=== PATIENT | male | born 1955 | race African-American/Black ===

== ENCOUNTER 2018-02-02 17:08 | Inpatient (IN) ==
[2018-02-02] MEDS ORDERED: Sod Chloride 0.9% Inj 1,000 ML IV.SIG ONE ×2 (18:53→22:06)
--- NOTE | 2018-02-02 19:54 | ED ---
HPI General Chief Complaint: Abdominal Pain Stated Complaint: Ams/vomiting Time Seen by Provider: 02/02/18 18:44 Source: family Mode of arrival: ambulatory Limitations: altered mental status History of Present Illness HPI narrative: 63-year-old male with PMH of HTN, schizophrenia presents to the ED with his family member for evaluation of 3 day history of altered mental status. Patient's brother at bedside states that patient has not spoken in 3 days. He also states that the patient has been vomiting for the last 2 days. He states that he noticed blood in the patient's stool today. On presentation the patient is alert, however, he does not answer questions appropriately or respond appropriately to commands. Patient's brother states that he has been administering the patient's medications. The brother at bedside states that the patient recently moved into his house after the [facility] where he was living closed. Primary care is through the [place]. MD complaint: altered mental status Onset (ago): day(s) (3) Timing confirmed by: family member Severity: moderate Consistency of symptoms: constant Context: unknown (schizophrenia) Related Data Home Medications Medication Instructions Recorded Confirmed acetaminophen [Tylenol Extra 500 mg PO Q4-6H PRN 02/02/18 02/02/18 Strength] amlodipine 5 mg PO DAILY 02/02/18 02/02/18 citalopram 20 mg PO DAILY 02/02/18 02/02/18 cyanocobalamin (vitamin B-12) 500 mcg PO DAILY 02/02/18 02/02/18 [Vitamin B-12] fluphenazine HCl 10 mg PO BID 02/02/18 02/02/18 hydrochlorothiazide 12.5 mg PO DAILY 02/02/18 02/02/18 lorazepam 1 mg PO TID 02/02/18 02/02/18 multivitamin with minerals 1 tab PO TID 02/02/18 02/02/18 omeprazole 20 mg PO DAILY 02/02/18 02/02/18 potassium chloride 20 meq PO BID 02/02/18 02/02/18 trazodone 200 mg PO HS 02/02/18 02/02/18 trihexyphenidyl 4 mg PO BID 02/02/18 02/02/18 Allergies Allergy/AdvReac Type Severity Reaction Status Date / Time cimetidine Allergy Severe Vomiting Unverified 02/02/18 18:44 penicillin G Allergy Severe Vomiting Unverified 02/02/18 18:44 h2 inhibitor Allergy Unknown Vomiting Uncoded 02/02/18 18:44 PCN,XPREXIA,STERAZONE Allergy Unknown Vomiting Uncoded 02/02/18 18:44 Review of Systems ROS Unobtainable ROS Unobtainable: unobtainable due to mental condition [facility] Medical History Medical History Schizophrenia, paranoid (Acute) Social History Social History Substance History: Active Abuse Second Hand Smoke Exposure: Yes Smoking Status: Current every day smoker Tobacco Type: Cigarettes How Often Do You Have a Drink Containing Alcohol: Never Recent Travel in [facility] within the Last 8 Weeks: No Recent Out of Country Travel within the Last 8 Weeks: No Substance Abuse Detail Marijuana: Substance Use Status: Active Route Used Substance Abuse: Inhalation Immunization History Tetanus Immunization: <5 Years Hx Influenza Vaccine This Season: Yes Exam Narrative Exam Narrative: GENERAL: Thin, well-developed -Algerian male sitting up in the stretcher in no acute distress. SKIN: Focused skin assessment warm/dry. HEAD: Atraumatic. Normocephalic. EYES: Pupils equal and round. No scleral icterus. No drainage. Eyes injected bilaterally. ENT: No nasal bleeding or discharge. Mucous membranes pink and moist. NECK: Trachea midline. No JVD. CARDIOVASCULAR: Regular rate and rhythm. No murmur appreciated. RESPIRATORY: No accessory muscle use. Clear to auscultation. Breath sounds equal bilaterally. GASTROINTESTINAL: Abdomen soft, non-tender, nondistended. Hepatic and splenic margins not palpable. No palpable masses. I am unable to elicit any response to deep palpation. RECTAL: Stool is dark, bloody. No masses. MUSCULOSKELETAL: No obvious deformities. No clubbing. No cyanosis. No edema. NEUROLOGICAL: Awake and alert. No obvious cranial nerve deficits. Motor grossly within normal limits. Normal speech. PSYCHIATRIC: Appropriate mood and affect; insight and judgment normal. Course Initial Documented Vital Signs Temperature 98.5 F 02/02/18 17:21 Pulse Rate 110 H 02/02/18 17:21 Respiratory Rate 12 02/02/18 17:21 Blood Pressure 132/94 H 02/02/18 17:21 Pulse Oximetry 97 02/02/18 17:21 Last Documented Vital Signs Temperature 98.5 F 02/02/18 17:21 Pulse Rate 88 02/02/18 23:35 Respiratory Rate 18 02/02/18 23:35 Blood Pressure 188/97 H 02/02/18 23:35 Pulse Oximetry 98 02/02/18 23:35 Procedures Hemaprompt Gastric Content Procedural Steps Taken: specimen placed in appropriate test area and controls appropriately positive and negative Hemaprompt Gastric Result: positive Additional Comments: frankly bloody stool Medical Decision Making MDM Narrative Medical decision making narrative: 63-year-old male with PMH of HTN, schizophrenia presents to the ED with his family member for evaluation of 3 day history of altered mental status. Patient's brother at bedside states that patient has not spoken in 3 days. He also states that the patient has been vomiting for the last 2 days. He states that he noticed blood in the patient's stool today. On presentation the patient is alert, however, he does not answer questions appropriately or respond appropriately to commands. Vitals reviewed. Physical exam reveals a thin -Algerian male in no acute distress. I am unable to elicit any pain in the abdominal exam. Guaiac positive on rectal exam with janine hematochezia noted. IV was established. Patient was administered 1 L normal saline, 4 mg Zofran IV. Psychiatric screen ordered. EKG rate 84, sinus rhythm, MS interval 137, QRS 86, QTc 420 ms. Left axis deviation, no acute ST changes. Reviewed by . CXR: Hyperinflation without acute cardiopulmonary process. Troponin: CBC: No leukocytosis or anemia CMP: Sodium 135, chloride 97, BUN 22, creatinine 1.13. COAGS: Unremarkable Lipase 90. UA: No indication for culture Tox screen: Alcohol: CT abdomen pelvis: Mild to moderate distention of the colon nonobstructive. Could represent hypodynamic ileus. Mild fluid distention of the gastric lumen. Otherwise no acute findings per radiology read. Medical Screen Exam Complete: Yes Emergency Medical Condition: Yes Differential Diagnosis Differential Diagnosis: schizophrenia versus GI bleed versus bowel obstruction versus pancreatitis versus cholecystitis versus metabolic derangement versus alcohol intoxication versus substance abuse versus other Lab Data Result diagrams: 02/02/18 21:55 02/02/18 19:04 Lab Results 02/02/18 02/02/18 02/02/18 Range/Units 19:04 21:55 21:55 WBC 9.4 (4.0-11.0) th/mm3 RBC 4.64 (4.50-5.90) mil/mm3 Hgb 14.7 (13.0-17.0) gm/dL Hct 43.8 (39.0-51.0) % MCV 94.5 (80.0-100.0) fL MCH 31.8 (27.0-34.0) pg MCHC 33.7 (32.0-36.0) % RDW 13.5 (11.6-17.2) % Plt Count 233 (150-450) th/mm3 MPV 6.6 L (7.0-11.0) fL Neut % (Auto) 77.9 H (16.0-70.0) % Lymph % (Auto) 14.4 (9.0-44.0) % Leon % (Auto) 7.3 (0.0-8.0) % Eos % (Auto) 0.1 (0.0-4.0) % Baso % (Auto) 0.3 (0.0-2.0) % Neut # (Auto) 7.3 (1.8-7.7) th/mm3 Lymph # (Auto) 1.3 (1.0-4.8) th/mm3 Leon # (Auto) 0.7 (0.0-0.9) th/mm3 Eos # (Auto) 0.0 (0.0-0.4) th/mm3 Baso # (Auto) 0.0 (0.0-0.2) th/mm3 WBC Differential . Differential Comment Auto diff final PT (9.8-11.6) sec INR Ratio APTT (24.3-30.1) sec Sodium 135 L (136-145) meq/L Potassium 4.3 (3.5-5.1) meq/L Chloride 97 L (98-107) meq/L Carbon Dioxide 26.8 (21.0-32.0) meq/L Anion Gap 11 (5-15) meq/L BUN 22 H (7-18) mg/dL Creatinine 1.13 (0.60-1.30) mg/dL Estimated GFR 79 L (>89) mL/min Random Glucose 152 H (74-106) mg/dL Calcium 11.3 H (8.5-10.1) mg/dL Total Bilirubin 0.6 (0.2-1.0) mg/dL AST 32 (15-37) U/L ALT 25 (12-78) U/L Alkaline Phosphatase 88 (45-117) U/L Troponin I 0.04 (0.02-0.05) ng/mL Total Protein 9.7 H (6.4-8.2) g/dL Albumin 4.7 (3.4-5.0) g/dL Lipase 90 (73-393) U/L Urine Color (Yellw/Straw) Urine Clarity (Clear) Urine pH (5.0-8.5) Ur Specific [place] (1.002-1.035) Urine Protein (Neg-Trace) mg/dL Urine Glucose (UA) (Negative) mg/dL Urine Ketones (Negative) mg/dL Urine Occult Blood (Negative) Urine Nitrate (Negative) Urine Bilirubin (Negative) Urine Urobilinogen (Less than 2) mg/dL Ur Leukocyte Esterase (Negative) Urine RBC (0-3) /hpf Urine WBC (0-5) /hpf Urine Mucus (Occasional) /lpf Micro UA Comment Urine Culture Comments Urine Opiates Screen (Neg) Ur Barbiturates Screen (Neg) Ur Amphetamines Screen (Neg) U Benzodiazepines Scrn (Neg) Urine Cocaine Screen (Neg) U Cannabinoids Screen (Neg) Serum Alcohol Less than 3 (0-5) mg/dL 02/02/18 02/02/18 02/02/18 Range/Units 21:55 21:55 21:55 WBC (4.0-11.0) th/mm3 RBC (4.50-5.90) mil/mm3 Hgb (13.0-17.0) gm/dL Hct (39.0-51.0) % MCV (80.0-100.0) fL MCH (27.0-34.0) pg MCHC (32.0-36.0) % RDW (11.6-17.2) % Plt Count (150-450) th/mm3 MPV (7.0-11.0) fL Neut % (Auto) (16.0-70.0) % Lymph % (Auto) (9.0-44.0) % Leon % (Auto) (0.0-8.0) % Eos % (Auto) (0.0-4.0) % Baso % (Auto) (0.0-2.0) % Neut # (Auto) (1.8-7.7) th/mm3 Lymph # (Auto) (1.0-4.8) th/mm3 Leon # (Auto) (0.0-0.9) th/mm3 Eos # (Auto) (0.0-0.4) th/mm3 Baso # (Auto) (0.0-0.2) th/mm3 WBC Differential Differential Comment PT 12.0 H (9.8-11.6) sec INR 1.2 Ratio APTT 27.1 (24.3-30.1) sec Sodium (136-145) meq/L Potassium (3.5-5.1) meq/L Chloride (98-107) meq/L Carbon Dioxide (21.0-32.0) meq/L Anion Gap (5-15) meq/L BUN (7-18) mg/dL Creatinine (0.60-1.30) mg/dL Estimated GFR (>89) mL/min Random Glucose (74-106) mg/dL Calcium (8.5-10.1) mg/dL Total Bilirubin (0.2-1.0) mg/dL AST (15-37) U/L ALT (12-78) U/L Alkaline Phosphatase (45-117) U/L Troponin I (0.02-0.05) ng/mL Total Protein (6.4-8.2) g/dL Albumin (3.4-5.0) g/dL Lipase (73-393) U/L Urine Color Yellow (Yellw/Straw) Urine Clarity Clear (Clear) Urine pH 6.0 (5.0-8.5) Ur Specific [place] 1.044 H (1.002-1.035) Urine Protein 100 H (Neg-Trace) mg/dL Urine Glucose (UA) Negative (Negative) mg/dL Urine Ketones Negative (Negative) mg/dL Urine Occult Blood Large H (Negative) Urine Nitrate Negative (Negative) Urine Bilirubin Negative (Negative) Urine Urobilinogen Less than 2 (Less than 2) mg/dL Ur Leukocyte Esterase Negative (Negative) Urine RBC 38 H (0-3) /hpf Urine WBC 2 (0-5) /hpf Urine Mucus Few H (Occasional) /lpf Micro UA Comment Culture not ind Urine Culture Comments Culture not ind Urine Opiates Screen Neg (Neg) Ur Barbiturates Screen Neg (Neg) Ur Amphetamines Screen Neg (Neg) U Benzodiazepines Scrn Neg (Neg) Urine Cocaine Screen Neg (Neg) U Cannabinoids Screen Neg (Neg) Serum Alcohol (0-5) mg/dL Imaging Data Radiologist's impression: Abdomen/Pelvis CT 02/02/18 18:53 CONCLUSION: 1. There is mild to moderate air distention of the colon in a nonobstructive pattern. Findings could represent a mild hypodynamic ileus. 2. Mild fluid distention of the gastric lumen. Nonspecific but can be seen in patients with a reported history of emesis. 3. Otherwise, no acute intraperitoneal or pelvic process to explain current clinical symptoms. Head CT 02/02/18 19:27 CONCLUSION: Negative exam . Chest X-Ray 02/02/18 19:44 CONCLUSION: Hyperinflation with no acute cardiopulmonary process. Discharge Plan Discharge Disposition Patient Disposition: 30 Still Patient Discharge Condition Condition: Stable Discharge Details Anticipated Discharge Date: 02/03/18 Diagnosis: GI bleed Physicians Team ED Provider: Sima Peter ED Midlevel Provider: Petra Mcgowan Primary Care Provider: [facility]ician [facility] /Orders / Referrals /Forms Prescriptions: No Action fluphenazine HCl 10 mg Tablet 10 mg PO BID RF: 0 amlodipine 5 mg Tablet 5 mg PO DAILY RF: 0 acetaminophen [Tylenol Extra Strength] 500 mg Tablet 500 mg PO Q4-6H PRN (Reason: Pain) RF: 0 citalopram 20 mg Tablet 20 mg PO DAILY RF: 0 cyanocobalamin (vitamin B-12) [Vitamin B-12] 500 mcg Tablet 500 mcg PO DAILY RF: 0 trazodone 100 mg Tablet 200 mg PO HS RF: 0 hydrochlorothiazide 12.5 mg Capsule 12.5 mg PO DAILY RF: 0 omeprazole 20 mg Capsule,Delayed Release(Dr/Ec) 20 mg PO DAILY RF: 0 lorazepam 1 mg Tablet 1 mg PO TID RF: 0 multivitamin with minerals Tablet 1 tab PO TID RF: 0 trihexyphenidyl 2 mg Tablet 4 mg PO BID RF: 0 potassium chloride 20 mEq Tablet Extended Release 20 meq PO BID RF: 0 Discharge Interventions Interventions: Vital Signs Last Done: 02/02/18 23:35 Status ED Status: With Doctor
--- NOTE | 2018-02-02 20:02 | XR ---
EXAM DATE: 02/02/2018 7:58 PM EDT AGE/SEX: 63 years / Male INDICATIONS: Fever. CLINICAL DATA: This is the patient's initial encounter. Patient reports that signs and symptoms have been present for 1 day and indicates a pain score of Nonresponsive. MEDICAL/SURGICAL HISTORY: Non-responsive. Non-responsive. COMPARISON: No prior exams available for comparison. FINDINGS: A single AP view of the chest demonstrates the lungs to be symmetrically hyperinflated with no acute infiltrate. Heart size is normal. Osseous structures are intact. CONCLUSION: Hyperinflation with no acute cardiopulmonary process. Electronically signed by: Matthew Quiñonez MD 02/02/2018 8:00 PM EDT
[2018-02-02 20:25] LABS: Albumin 4.7 g/dL (3.4-5.0); Anion Gap 11 meq/L (5-15); Aspartate Aminotransferase 32 U/L (15-37); Blood Urea Nitrogen 22 mg/dL (7-18); Calcium 11.3 mg/dL (8.5-10.1); Carbon Dioxide 26.8 meq/L (21.0-32.0); Chloride 97 meq/L (98-107); Glomerular Filtration Rate 79 mL/min (>89); Glucose,Random 152 mg/dL (74-106); Lipase 90 U/L (73-393); Sodium 135 meq/L (136-145)
[2018-02-02 20:26] LABS: Alanine Aminotransferase 25 U/L (12-78)
[2018-02-02 20:28] LABS: Alkaline Phosphatase 88 U/L (45-117); Total Protein 9.7 g/dL (6.4-8.2)
[2018-02-02 20:47] LABS: Potassium 4.3 meq/L (3.5-5.1)
--- NOTE | 2018-02-02 21:12 | CT ---
EXAM DATE: 02/02/2018 9:08 PM EDT AGE/SEX: 63 years / Male INDICATIONS: Altered mental status. CLINICAL DATA: This is the patient's initial encounter. Patient reports that signs and symptoms have been present for 1 day and indicates a pain score of 0/10. MEDICAL/SURGICAL HISTORY: None. None. RADIATION DOSE: 56.63 CTDI (mGy) COMPARISON: No prior exams available for comparison. TECHNIQUE: CT of the head without contrast. Using automated exposure control and adjustment of the mA and/or kV according to patient size, radiation dose was kept as low as reasonably achievable to ob tain optimal diagnostic quality images. DICOM format image data is available electronically for revi ew and comparison. FINDINGS: Cerebrum: The ventricles are normal for age. No evidence of midline shift, mass lesion, hemorrhage or acute infarction. No extraaxial fluid collections are seen. Posterior Fossa: The cerebellum and brainstem are intact. The 4th ventricle is midline. The cerebe llopontine angle is unremarkable. Extracranial: The visualized portion of the orbits is intact. Skull: The calvaria is intact. No evidence of skull fracture. CONCLUSION: Negative exam . Electronically signed by: Matthew Quiñonez MD 02/02/2018 9:10 PM EDT
--- NOTE | 2018-02-02 21:28 | CT ---
EXAM DATE: 02/02/2018 9:18 PM EDT AGE/SEX: 63 years / Male INDICATIONS: Abdominal pain, vomiting. CLINICAL DATA: This is the patient's initial encounter. Patient reports that signs and symptoms have been present for 1 day and indicates a pain score of 4/10. MEDICAL/SURGICAL HISTORY: None. None. ORAL CONTRAST: No oral contrast ingested. RADIATION DOSE: 4.88 CTDI (mGy) COMPARISON: No prior exams available for comparison. TECHNIQUE: Multiple contiguous axial images were obtained through the abdomen and pelvis following b olus infusion of 95 ml Omnipaque 350 (iohexol) nonionic water-soluble contrast as a single exam dos e. No oral contrast ingested. Using automated exposure control and adjustment of the mA and/or kV ac cording to patient size, radiation dose was kept as low as reasonably achievable to obtain optimal di agnostic quality images. DICOM format image data is available electronically for review and comparis on. FINDINGS: Lower Lungs: The visualized lower lungs are clear. Liver: The liver has a homogeneous density without space-occupying lesion. There is no dilation of th e biliary tree. Spleen: Homogeneous density without enlargement. Pancreas: Unremarkable without mass or calcification. Kidneys: Normal in size and shape. No evidence of mass or hydronephrosis. Adrenal Glands: Unremarkable. Aorta: Scattered athetotic plaquing in the abdominal aorta and proximal iliacs with approximate 50% stenosis in the junction of the proximal and mid left common iliac artery. Bowel/Mesentery: There is some air distention of the colon in a nonobstructive pattern. Stomach is f luid-filled. Otherwise, no findings of bowel obstruction. Abdominal Wall: Intact. Retroperitoneum: No evidence of adenopathy in the retrocrural, para-aortic, or deep pelvic regions. Bladder: Contours are smooth. Reproductive Organs: No abnormal masses or calcifications seen. Inguinal: The inguinal region is unremarkable without evidence of adenopathy. Bony Structures: Unremarkable. Post Contrast: No abnormal areas of enhancement seen. CONCLUSION: 1. There is mild to moderate air distention of the colon in a nonobstructive pattern. Findings could represent a mild hypodynamic ileus. 2. Mild fluid distention of the gastric lumen. Nonspecific but can be seen in patients with a report ed history of emesis. 3. Otherwise, no acute intraperitoneal or pelvic process to explain current clinical symptoms. Electronically signed by: Matthew Quiñonez MD 02/02/2018 9:27 PM EDT
[2018-02-02 22:14] LABS: Bilirubin,Urine Negative (Negative); Clarity,Urine Clear (Clear); Color,Urine Yellow (Yellw/Straw); Glucose,Urine (UA) Negative (Negative); Leukocyte Esterase,Urine Negative (Negative); Mucus,Urine Few /lpf (Occasional); Nitrite,Urine Negative (Negative); Specific Gravity,Urine 1.044 (1.002-1.035)
[2018-02-02 22:18] LABS: Baso % (Auto) 0.3 % (0.0-2.0); Eos % (Auto) 0.1 % (0.0-4.0); Hematocrit 43.8 % (39.0-51.0); Hemoglobin 14.7 gm/dL (13.0-17.0); Lymph # (Auto) 1.3 th/mm3 (1.0-4.8); Lymph % (Auto) 14.4 % (9.0-44.0); Mean Corpuscular HGB Conc 33.7 % (32.0-36.0); Mean Corpuscular Hemoglobin 31.8 pg (27.0-34.0); Mean Corpuscular Volume 94.5 fL (80.0-100.0); Mean Platelet Volume 6.6 fL (7.0-11.0); Mono # (Auto) 0.7 th/mm3 (0.0-0.9); Mono % (Auto) 7.3 % (0.0-8.0); Neut # (Auto) 7.3 th/mm3 (1.8-7.7); Neut % (Auto) 77.9 % (16.0-70.0); Platelet Count 233 th/mm3 (150-450); Red Blood Count 4.64 mil/mm3 (4.50-5.90); Red Cell Distribution Width 13.5 % (11.6-17.2); White Blood Count 9.4 th/mm3 (4.0-11.0)
[2018-02-02 22:23] LABS: Activated Partial Thrombo Time 27.1 sec (24.3-30.1); INR 1.2 Ratio
[2018-02-02 22:45] LABS: Troponin I 0.04 ng/mL (0.02-0.05)
[2018-02-02 23:59] LABS: Amphetamine Screen,Urine Neg (Neg); Barbiturate Screen,Urine Neg (Neg); Cannabinoid Screen,Urine Neg (Neg); Cocaine Screen,Urine Neg (Neg)
[2018-02-03 00:01] LABS: Opiate Screen,Urine Neg (Neg)
[2018-02-03] MEDS ORDERED: Pantoprazole Inj 40 MG Vial IV.PUSH ONE (00:18)
[2018-02-03] MEDS ORDERED: Bisacodyl 10 MG Supp RECTAL PRN (00:25)
[2018-02-03] MEDS ORDERED: Acetaminophen 325 MG Tablet PO PRN (00:25)
[2018-02-03] MEDS: Sod Chloride 0.9% Inj 1,000 ML IV.CONT SCH ×3 (00:42→21:51)
--- NOTE | 2018-02-03 01:13 | P.HPIM ---
History of Present Illness Primary Care Physician: [facility] History of Present Illness: Is a 63-year-old male with a PMH of HTN and Schizophrenia who was brought to the ER by Brother for evaluation of nausea/vomiting x2 days. Per Brother pt has been nonverbal for approx 3 days. Brother states he noticed blood in patient's stool. Pt will not answer any questions. On arrival, BP 132/94, HR 110, O2 sat 97% on RA, Afebrile. CBC unremarkable, hemoglobin 14.7. INR 1.2. Chemistry essentially unremarkable except for BUN 22, calcium 11.3. Troponin 0 0.04. UA negative for UTI, + hematuria. Urine Drug Screen negative. Alcohol negative. CT Head negative. CXR with no acute findings. CT Abdomen/Pelvis mild to moderate distention in the colon, possibly mild hypodynamic ileus, mild fluid distention of gastric lumen. On exam, Hemoccult +. - Diagnosis (1) Ileus (2) GI bleed (3) Schizophrenia Inpatient Certification: I certify that the inpatient services were ordered in accordance with Medicare regulations governing the order. This includes certification that hospital inpatient services are reasonable and necessary and in the case of services not specified as inpatient-only under 42 CFR 419.22(n), that they are appropriately provided as inpatient services in accordance to with the 2-midnight benchmark under 43 CFR 412.3(e) Estimated Total Length of Stay (Days): 2 Plans for Post Hospital Care: Not yet determined Review of Systems PAST FAMILY HISTORY: Unknown All other systems reviewed negative except as stated [facility] - History History Provided By: Family Member - Medical History Medical History: Medical History (Last Updated 02/02/18 @ 18:42 by Marleen Bee) Schizophrenia, paranoid - Tobacco History Second Hand Smoke Exposure: Yes Tobacco Use In Past 30 Days: Yes Smoking Status: Current every day smoker Tobacco Type: Cigarettes - Alcohol History How Often Do You Have a Drink Containing Alcohol: Never - Substance Use History Substance History: Active Abuse - Substance Use Type Marijuana Status: Active Route Used: Inhalation - Travel History Recent Travel in the [place] Within the Last 8 Weeks: No Recent Travel Out of the Country Within the Last 8 Weeks: No - Immunization History Tetanus Immunization: <5 Years Hx Influenza Vaccine This Season: Yes Medications and Allergies Active Medications: Active Medications Acetaminophen (Tylenol) 650 mg PO Q4H PRN PRN Reason: Temp > 100.4 Al Hydroxide/Mg Hydroxide (Milk Of Magnesia Liq) 30 ml PO Q12H PRN PRN Reason: Mild Constipation Bisacodyl (Dulcolax Supp) 10 mg RECTAL DAILY PRN PRN Reason: SEVERE CONSITIPATION Sodium Chloride (Ns Inj) 1,000 mls @ 100 mls/hr IV.CONT .Q10H [facility] Last Admin: 02/03/18 00:42 Dose: 100 mls/hr Lactulose (Lactulose Liq) 30 ml PO DAILY PRN PRN Reason: SEVERE CONSITIPATION Ondansetron HCl (Zofran Inj) 4 mg IV.PUSH Q6H PRN PRN Reason: NAUSEA OR VOMITING Pantoprazole Sodium (Protonix Inj) 40 mg IV.PUSH Q12H ALIN Prochlorperazine Edisylate (Compazine Inj) 10 mg IV.PUSH Q6H PRN PRN Reason: NAUSEA/VOMITING Senna/Docusate Sodium (Anny-Colace) 1 tab PO BID [facility] Sennosides (Senokot) 17.2 mg PO Q12H PRN PRN Reason: Moderate Constipation Sodium Chloride (Ns Flush) 2 ml IV.FLUSH PRN PRN PRN Reason: FLUSH AFTER USING IV ACCESS Allergies Allergy/AdvReac Type Severity Reaction Status Date / Time cimetidine Allergy Severe Vomiting Verified 02/03/18 01:04 penicillin G Allergy Severe Vomiting Verified 02/03/18 01:04 h2 inhibitor Allergy Unknown Vomiting Uncoded 02/02/18 18:44 PCN,XPREXIA,STERAZONE Allergy Unknown Vomiting Uncoded 02/02/18 18:44 Home Medications Medication Instructions Recorded Confirmed Type acetaminophen [Tylenol Extra 500 mg PO Q4-6H PRN 02/02/18 02/02/18 History Strength] amlodipine 5 mg PO DAILY 02/02/18 02/02/18 History citalopram 20 mg PO DAILY 02/02/18 02/02/18 History cyanocobalamin (vitamin B-12) 500 mcg PO DAILY 02/02/18 02/02/18 History [Vitamin B-12] fluphenazine HCl 10 mg PO BID 02/02/18 02/02/18 History hydrochlorothiazide 12.5 mg PO DAILY 02/02/18 02/02/18 History lorazepam 1 mg PO TID 02/02/18 02/02/18 History multivitamin with minerals 1 tab PO TID 02/02/18 02/02/18 History omeprazole 20 mg PO DAILY 02/02/18 02/02/18 History potassium chloride 20 meq PO BID 02/02/18 02/02/18 History trazodone 200 mg PO HS 02/02/18 02/02/18 History trihexyphenidyl 4 mg PO BID 02/02/18 02/02/18 History Exam Vital signs: Vital Signs 02/02/18 17:21 02/02/18 22:08 02/02/18 23:35 Temperature 98.5 F Pulse Rate 110 H 92 H 88 Respiratory Rate 12 18 18 Blood Pressure 132/94 H 187/97 H 188/97 H Pulse Oximetry 97 98 Intake & Output 02/02/18 02/02/18 02/03/18 06:59 18:59 06:59 Weight 65.771 kg Narrative: PE: GENERAL: Middle-aged black male in no acute distress. Sitting up in stretcher, staring blankly, nonverbal but answers yes or no intermittently. HEENT: PERRLA, EOMI. No scleral icterus or conjunctival pallor. No lid lag or facial droop. CARDIOVASCULAR: Regular rate and rhythm. No obvious murmurs to auscultation. No chest tenderness to palpation. RESPIRATORY: No obvious rhonchi or wheezing. Clear to auscultation. Breath sounds equal bilaterally. GASTROINTESTINAL: Abdomen soft, non-tender, nondistended. BS normal. MUSCULOSKELETAL: Extremities without clubbing, cyanosis, or edema. No obvious deformities. NEUROLOGICAL: Awake, alert. No focal neurologic deficits. Moving both upper and lower extremities spontaneously. Results - Labs CBC & Chem 7: 02/02/18 21:55 02/02/18 19:04 Labs: Short CBC 02/02/18 Range/Units 21:55 WBC 9.4 (4.0-11.0) th/mm3 Hgb 14.7 (13.0-17.0) gm/dL Hct 43.8 (39.0-51.0) % Plt Count 233 (150-450) th/mm3 BMP 02/02/18 19:04 Sodium 135 L Potassium 4.3 Chloride 97 L Carbon Dioxide 26.8 BUN 22 H Creatinine 1.13 Calcium 11.3 H Cardiac Enzymes 02/02/18 Range/Units 21:55 Troponin I 0.04 (0.02-0.05) ng/mL Liver Function 02/02/18 Range/Units 19:04 Total Bilirubin 0.6 (0.2-1.0) mg/dL AST 32 (15-37) U/L ALT 25 (12-78) U/L Alkaline Phosphatase 88 (45-117) U/L Albumin 4.7 (3.4-5.0) g/dL Urine 02/02/18 Range/Units 21:55 Urine Color Yellow (Yellw/Straw) Urine Clarity Clear (Clear) Urine pH 6.0 (5.0-8.5) Ur Specific [place] 1.044 H (1.002-1.035) Urine Protein 100 H (Neg-Trace) mg/dL Urine Glucose (UA) Negative (Negative) mg/dL - Imaging Impressions Abdomen/Pelvis CT 02/02/18 18:53 CONCLUSION: 1. There is mild to moderate air distention of the colon in a nonobstructive pattern. Findings could represent a mild hypodynamic ileus. 2. Mild fluid distention of the gastric lumen. Nonspecific but can be seen in patients with a reported history of emesis. 3. Otherwise, no acute intraperitoneal or pelvic process to explain current clinical symptoms. Head CT 02/02/18 19:27 CONCLUSION: Negative exam . Chest X-Ray 02/02/18 19:44 CONCLUSION: Hyperinflation with no acute cardiopulmonary process. Caprini VTE Risk Assessment Caprini VTE Risk Assessment: No/Low Risk (score <= 1) VTE Pharmacological Exception Reason: Active bleeding Caprini Risk Assessment Model: Point Value = 1 Point Value = 2 Point Value = 3 Point Value = 5 Age 41-60 Minor surgery BMI > 25 kg/m2 Swollen legs Varicose veins or History of unexplained or recurrent spontaneous Oral contraceptives or hormone replacement Sepsis (< 1 month) Serious lung disease, including pneumonia (< 1 month) Abnormal pulmonary function Acute myocardial infarction Congestive heart failure (< 1 month) History of inflammatory bowel disease Medical patient at bed rest Age 61-74 Arthroscopic surgery Major open surgery (> 45 min) Laparoscopic surgery (> 45 min) Malignancy Confined to bed (> 72 hours) Immobilizing plaster cast Central venous access Age >= 75 History of VTE Family history of VTE Factor V Leiden Prothrombin [id number] Lupus anticoagulant Anticardiolipin antibodies Elevated serum homocysteine Heparin-induced thrombocytopenia Other congenital or acquired thrombophilia Stroke (< 1 month) Elective arthroplasty Hip, pelvis, or leg fracture Acute spinal cord injury (< 1 month) Prophylaxis Regimen: Total Risk Factor Score Risk Level Prophylaxis Regimen 0-1 Low Early ambulation 2 Moderate Order ONE of the following: *Sequential Compression Device (SCD) *Heparin 5000 units SQ BID 3-4 Higher Order ONE of the following medications: *Heparin 5000 units SQ TID *Enoxaparin/Lovenox 40 mg SQ daily (WT < 150 kg, CrCl > 30 mL/min) *Enoxaparin/Lovenox 30 mg SQ daily (WT < 150 kg, CrCl > 10-29 mL/min) *Enoxaparin/Lovenox 30 mg SQ BID (WT < 150 kg, CrCl > 30 mL/min) AND/OR *Sequential Compression Device (SCD) 5 or more Highest Order ONE of the following medications: *Heparin 5000 units SQ TID (Preferred with Epidurals) *Enoxaparin/Lovenox 40 mg SQ daily (WT < 150 kg, CrCl > 30 mL/min) *Enoxaparin/Lovenox 30 mg SQ daily (WT < 150 kg, CrCl > 10-29 mL/min) *Enoxaparin/Lovenox 30 mg SQ BID (WT < 150 kg, CrCl > 30 mL/min) AND *Sequential Compression Device (SCD) Assessment and Plan - Assessment (1) Ileus Code(s): K56.7 - Ileus, unspecified Status: Acute (2) GI bleed Code(s): K92.2 - Gastrointestinal hemorrhage, unspecified Status: Acute (3) Schizophrenia Code(s): F20.9 - Schizophrenia, unspecified Status: Acute - Plan A/P: 1. Ileus: nausea/vomiting x2 days per family member, CT Abd/Pelvis w/ mild to moderate air distention of the colon, likely hypodynamic ileus, images reviewed. NPO, IVF, antiemetics as needed. 2. GI Bleed: Hemoccult +, Hgb stable at 14.7, will repeat Hgb/Hct in am, Protonix IV, Consult GI for further evaluation. 3. Schizophrenia: nonverbal x3 days per Brother, consult Psychiatry for further evaluation/recommendations. 4. DVT Prophylaxis: Pharmacologic contraindication in light of GI Bleed 5. Social work for DC planning as needed. 6. Case discussed at length with the ER physician, lab/record/imaging reviewed by me.
[2018-02-03] MEDS: Senna/Docusate Sodium 8.6/50 MG Tablet PO SCH ×2 (08:49→21:50)
[2018-02-03] MEDS: Pantoprazole Inj 40 MG Vial IV.PUSH SCH ×2 (08:49→21:49)
--- NOTE | 2018-02-03 11:01 | P.CONGI ---
History of Present Illness Consult date: 02/03/18 Consult reason: GI bleed, rectal bleeding Chief complaint: GI Bleed History of Present Illness: This is a slim 63-year-old male who entered the hospital on 2017. According to the record patient was having nausea and vomiting 2 days as well as blood in the stool. Patient is a poor historian but does note that he has trouble with constipation at times. He does state usual bowel movement daily brown formed. Patient does complain of some dyspepsia symptoms which he states are chronic but unknown timing event. Patient has a significant history of schizophrenia so most of the information is being gathered from the record. There is currently no family present. Patient denies any family history of colon cancer but states his brother has some type of GI issues currently unknown. Patient is unknown whether he has had EGD or colonoscopy in the past. Current labs show hemoglobin 14.7, PT/INR 1.2, bilirubin and LFTs normal. Gastroenterology was consulted to assist with GI bleed. Patient does note decreased appetite and does appear to be very slim borderline frail. CT scan was done on admission which showed mild to moderate distention of the colon in a nonobstructive pattern. Findings could represent a mild hypodynamic ileus. Mild fluid distention in the gastric lumen nonspecific otherwise no acute retroperitoneal or pelvic process to explain current symptoms. Before patient was transferred up to a regular room nurse notes large maroon colored stool incontinent in the bed. <Ernestine Walsh - Last Filed: 02/03/18 12:10> Review of Systems All other systems reviewed negative except as stated in HPI, unobtainable due to mental condition (Limited ROS review) <Ernestine Walsh - Last Filed: 02/03/18 12:10> PMFSH - History History Provided By: Patient - Medical History Medical History: Medical History (Last Updated 02/02/18 @ 18:42 by Marleen Bee) Schizophrenia, paranoid - Tobacco History Second Hand Smoke Exposure: Yes Tobacco Use In Past 30 Days: Yes Smoking Status: Current every day smoker Tobacco Type: Cigarettes - Alcohol History How Often Do You Have a Drink Containing Alcohol: Never - Substance Use History Substance History: Active Abuse - Substance Use Type Marijuana Status: Active Route Used: Inhalation Reason for Use: Calm Down - Travel History Recent Travel in the [facility] Within the Last 8 Weeks: No Recent Travel Out of the Country Within the Last 8 Weeks: No - Immunization History Tetanus Immunization: <5 Years Hx Influenza Vaccine This Season: Yes <Ernestine Walsh - Last Filed: 02/03/18 12:10> - Medical History Medical History: Medical History (Last Updated 02/02/18 @ 18:42 by Marleen Bee) Schizophrenia, paranoid <XavierabeGilbertocarlos - Last Filed: 02/03/18 12:42> Medications and Allergies Active Medications: Active Medications Acetaminophen (Tylenol) 650 mg PO Q4H PRN PRN Reason: Temp > 100.4 Al Hydroxide/Mg Hydroxide (Milk Of Magnesia Liq) 30 ml PO Q12H PRN PRN Reason: Mild Constipation Bisacodyl (Dulcolax Supp) 10 mg RECTAL DAILY PRN PRN Reason: SEVERE CONSITIPATION Sodium Chloride (Ns Inj) 1,000 mls @ 100 mls/hr IV.CONT .Q10H [facility] Last Infusion: 02/03/18 09:56 Dose: 0 mls/hr Lactulose (Lactulose Liq) 30 ml PO DAILY PRN PRN Reason: SEVERE CONSITIPATION Ondansetron HCl (Zofran Inj) 4 mg IV.PUSH Q6H PRN PRN Reason: NAUSEA OR VOMITING Pantoprazole Sodium (Protonix Inj) 40 mg IV.PUSH Q12H [facility] Last Admin: 02/03/18 08:49 Dose: 40 mg Prochlorperazine Edisylate (Compazine Inj) 10 mg IV.PUSH Q6H PRN PRN Reason: NAUSEA/VOMITING Senna/Docusate Sodium (Anny-Colace) 1 tab PO BID [facility] Last Admin: 02/03/18 08:49 Dose: 1 tab Sennosides (Senokot) 17.2 mg PO Q12H PRN PRN Reason: Moderate Constipation Sodium Chloride (Ns Flush) 2 ml IV.FLUSH PRN PRN PRN Reason: FLUSH AFTER USING IV ACCESS <Ernestine Walsh - Last Filed: 02/03/18 12:10> Active Medications: Active Medications Acetaminophen (Tylenol) 650 mg PO Q4H PRN PRN Reason: Temp > 100.4 Al Hydroxide/Mg Hydroxide (Milk Of Magnesia Liq) 30 ml PO Q12H PRN PRN Reason: Mild Constipation Bisacodyl (Dulcolax Supp) 10 mg RECTAL DAILY [facility] Sodium Chloride (Ns Inj) 1,000 mls @ 100 mls/hr IV.CONT .Q10H [facility] Last Infusion: 02/03/18 09:56 Dose: 0 mls/hr Lactulose (Lactulose Liq) 30 ml PO DAILY PRN PRN Reason: SEVERE CONSITIPATION Ondansetron HCl (Zofran Inj) 4 mg IV.PUSH Q6H PRN PRN Reason: NAUSEA OR VOMITING Pantoprazole Sodium (Protonix Inj) 40 mg IV.PUSH Q12H [facility] Last Admin: 02/03/18 08:49 Dose: 40 mg Polyethylene Glycol/Electrolytes (Colyte Liq) 4,000 ml PO ONCE ONE Stop: 02/03/18 16:01 Prochlorperazine Edisylate (Compazine Inj) 10 mg IV.PUSH Q6H PRN PRN Reason: NAUSEA/VOMITING Senna/Docusate Sodium (Anny-Colace) 1 tab PO BID [facility] Last Admin: 02/03/18 08:49 Dose: 1 tab Sennosides (Senokot) 17.2 mg PO Q12H PRN PRN Reason: Moderate Constipation Sodium Chloride (Ns Flush) 2 ml IV.FLUSH PRN PRN PRN Reason: FLUSH AFTER USING IV ACCESS <Santo Yu - Last Filed: 02/03/18 12:42> Allergies Allergy/AdvReac Type Severity Reaction Status Date / Time cimetidine Allergy Severe Vomiting Verified 02/03/18 01:04 penicillin G Allergy Severe Vomiting Verified 02/03/18 01:04 h2 inhibitor Allergy Unknown Vomiting Uncoded 02/02/18 18:44 PCN,XPREXIA,STERAZONE Allergy Unknown Vomiting Uncoded 02/02/18 18:44 Home Medications Medication Instructions Recorded Confirmed Type acetaminophen [Tylenol Extra 500 mg PO Q4-6H PRN 02/02/18 02/02/18 History Strength] amlodipine 5 mg PO DAILY 02/02/18 02/02/18 History citalopram 20 mg PO DAILY 02/02/18 02/02/18 History cyanocobalamin (vitamin B-12) 500 mcg PO DAILY 02/02/18 02/02/18 History [Vitamin B-12] fluphenazine HCl 10 mg PO BID 02/02/18 02/02/18 History hydrochlorothiazide 12.5 mg PO DAILY 02/02/18 02/02/18 History lorazepam 1 mg PO TID 02/02/18 02/02/18 History multivitamin with minerals 1 tab PO TID 02/02/18 02/02/18 History omeprazole 20 mg PO DAILY 02/02/18 02/02/18 History potassium chloride 20 meq PO BID 02/02/18 02/02/18 History trazodone 200 mg PO HS 02/02/18 02/02/18 History trihexyphenidyl 4 mg PO BID 02/02/18 02/02/18 History Exam Vital signs: Vital Signs 02/02/18 17:21 02/02/18 22:08 02/02/18 23:35 Temperature 98.5 F Pulse Rate 110 H 92 H 88 Respiratory Rate 12 18 18 Blood Pressure 132/94 H 187/97 H 188/97 H Pulse Oximetry 97 98 02/03/18 02:58 02/03/18 04:00 02/03/18 08:00 Temperature 98.3 F 98.5 F 98.0 F Pulse Rate 88 91 H 77 Respiratory Rate 18 16 16 Blood Pressure 158/88 H 156/86 H 181/98 H Pulse Oximetry 95 99 98 02/03/18 08:54 Temperature Pulse Rate Respiratory Rate Blood Pressure Pulse Oximetry 98 Intake & Output 02/02/18 02/03/18 02/03/18 18:59 06:59 18:59 Intake Total 1240 / 1240 Balance 1240 / 1240 Weight 65.771 kg 65.77 kg Intake: IV 1000 / 1000 NS Inj 1,000 ML @ Wide Open IV. 1000 / 1000 SIG BOLUS ONE Rx#:[id number] Oral 240 / 240 Other: # Voids 2 Date of Last Bowel Movement 02/03/18 Weight On Admission 65.771 kg - Constitutional no acute distress, chronically ill appearing - Routine HEENT Exam Head: Present: normocephalic ENT: Present: mucous membranes dry - Routine Neck Exam Present: supple - Routine Cardiovascular Exam Present: S1, S2 - Routine Abdominal Exam Present: soft, normoactive bowel sounds (Mild tenderness noted in the left lower quadrant with light palpation) - Routine Skin Exam Present: intact, dry - Routine Neurological Exam Present: alert (Awake fair to poor historian ) <Ernestine Walsh - Last Filed: 02/03/18 12:10> Vital signs: Vital Signs 02/02/18 17:21 02/02/18 22:08 02/02/18 23:35 Temperature 98.5 F Pulse Rate 110 H 92 H 88 Respiratory Rate 12 18 18 Blood Pressure 132/94 H 187/97 H 188/97 H Pulse Oximetry 97 98 02/03/18 02:58 02/03/18 04:00 02/03/18 08:00 Temperature 98.3 F 98.5 F 98.0 F Pulse Rate 88 91 H 77 Respiratory Rate 18 16 16 Blood Pressure 158/88 H 156/86 H 181/98 H Pulse Oximetry 95 99 98 02/03/18 08:54 Temperature Pulse Rate Respiratory Rate Blood Pressure Pulse Oximetry 98 Intake & Output 02/02/18 02/03/18 02/03/18 18:59 06:59 18:59 Intake Total 1240 / 1240 Balance 1240 / 1240 Weight 65.771 kg 65.77 kg Intake: IV 1000 / 1000 NS Inj 1,000 ML @ Wide Open IV. 1000 / 1000 SIG BOLUS ONE Rx#:[id number] Oral 240 / 240 Other: # Voids 2 Date of Last Bowel Movement 02/03/18 Weight On Admission 65.771 kg <Santo Yu - Last Filed: 02/03/18 12:42> Results - Labs CBC & Chem 7: 02/02/18 21:55 02/02/18 19:04 Labs: Laboratory Results - last 24 hr 02/02/18 02/02/18 02/02/18 19:04 21:55 21:55 WBC 9.4 RBC 4.64 Hgb 14.7 Hct 43.8 MCV 94.5 MCH 31.8 MCHC 33.7 RDW 13.5 Plt Count 233 MPV 6.6 L Neut % (Auto) 77.9 H Lymph % (Auto) 14.4 [place] % (Auto) 7.3 Eos % (Auto) 0.1 Baso % (Auto) 0.3 Neut # (Auto) 7.3 Lymph # (Auto) 1.3 [place] # (Auto) 0.7 Eos # (Auto) 0.0 Baso # (Auto) 0.0 WBC Differential . Differential Comment Auto diff final PT INR APTT Sodium 135 L Potassium 4.3 Chloride 97 L Carbon Dioxide 26.8 Anion Gap 11 BUN 22 H Creatinine 1.13 Estimated GFR 79 L Random Glucose 152 H Calcium 11.3 H Total Bilirubin 0.6 AST 32 ALT 25 Alkaline Phosphatase 88 Troponin I 0.04 Total Protein 9.7 H Albumin 4.7 Lipase 90 Urine Color Urine Clarity Urine pH Ur Specific [place] Urine Protein Urine Glucose (UA) Urine Ketones Urine Occult Blood Urine Nitrate Urine Bilirubin Urine Urobilinogen Ur Leukocyte Esterase Urine RBC Urine WBC Urine Mucus Micro UA Comment Urine Culture Comments Urine Opiates Screen Ur Barbiturates Screen Ur Amphetamines Screen U Benzodiazepines Scrn Urine Cocaine Screen U Cannabinoids Screen Serum Alcohol Less than 3 02/02/18 02/02/18 02/02/18 21:55 21:55 21:55 WBC RBC Hgb Hct MCV MCH MCHC RDW Plt Count MPV Neut % (Auto) Lymph % (Auto) [place] % (Auto) Eos % (Auto) Baso % (Auto) Neut # (Auto) Lymph # (Auto) [place] # (Auto) Eos # (Auto) Baso # (Auto) WBC Differential Differential Comment PT 12.0 H INR 1.2 APTT 27.1 Sodium Potassium Chloride Carbon Dioxide Anion Gap BUN Creatinine Estimated GFR Random Glucose Calcium Total Bilirubin AST ALT Alkaline Phosphatase Troponin I Total Protein Albumin Lipase Urine Color Yellow Urine Clarity Clear Urine pH 6.0 Ur Specific [place] 1.044 H Urine Protein 100 H Urine Glucose (UA) Negative Urine Ketones Negative Urine Occult Blood Large H Urine Nitrate Negative Urine Bilirubin Negative Urine Urobilinogen Less than 2 Ur Leukocyte Esterase Negative Urine RBC 38 H Urine WBC 2 Urine Mucus Few H Micro UA Comment Culture not ind Urine Culture Comments Culture not ind Urine Opiates Screen Neg Ur Barbiturates Screen Neg Ur Amphetamines Screen Neg U Benzodiazepines Scrn Neg Urine Cocaine Screen Neg U Cannabinoids Screen Neg Serum Alcohol - Imaging Impressions Abdomen/Pelvis CT 02/02/18 18:53 CONCLUSION: 1. There is mild to moderate air distention of the colon in a nonobstructive pattern. Findings could represent a mild hypodynamic ileus. 2. Mild fluid distention of the gastric lumen. Nonspecific but can be seen in patients with a reported history of emesis. 3. Otherwise, no acute intraperitoneal or pelvic process to explain current clinical symptoms. Head CT 02/02/18 19:27 CONCLUSION: Negative exam . Chest X-Ray 02/02/18 19:44 CONCLUSION: Hyperinflation with no acute cardiopulmonary process. <Ernestine Walsh M - Last Filed: 02/03/18 12:10> - Labs CBC & Chem 7: 02/02/18 21:55 02/02/18 19:04 Labs: Laboratory Results - last 24 hr 02/02/18 02/02/18 02/02/18 19:04 21:55 21:55 WBC 9.4 RBC 4.64 Hgb 14.7 Hct 43.8 MCV 94.5 MCH 31.8 MCHC 33.7 RDW 13.5 Plt Count 233 MPV 6.6 L Neut % (Auto) 77.9 H Lymph % (Auto) 14.4 [place] % (Auto) 7.3 Eos % (Auto) 0.1 Baso % (Auto) 0.3 Neut # (Auto) 7.3 Lymph # (Auto) 1.3 [place] # (Auto) 0.7 Eos # (Auto) 0.0 Baso # (Auto) 0.0 WBC Differential . Differential Comment Auto diff final PT INR APTT Sodium 135 L Potassium 4.3 Chloride 97 L Carbon Dioxide 26.8 Anion Gap 11 BUN 22 H Creatinine 1.13 Estimated GFR 79 L Random Glucose 152 H Calcium 11.3 H Total Bilirubin 0.6 AST 32 ALT 25 Alkaline Phosphatase 88 Troponin I 0.04 Total Protein 9.7 H Albumin 4.7 Lipase 90 Urine Color Urine Clarity Urine pH Ur Specific [place] Urine Protein Urine Glucose (UA) Urine Ketones Urine Occult Blood Urine Nitrate Urine Bilirubin Urine Urobilinogen Ur Leukocyte Esterase Urine RBC Urine WBC Urine Mucus Micro UA Comment Urine Culture Comments Urine Opiates Screen Ur Barbiturates Screen Ur Amphetamines Screen U Benzodiazepines Scrn Urine Cocaine Screen U Cannabinoids Screen Serum Alcohol Less than 3 02/02/18 02/02/18 02/02/18 21:55 21:55 21:55 WBC RBC Hgb Hct MCV MCH MCHC RDW Plt Count MPV Neut % (Auto) Lymph % (Auto) [place] % (Auto) Eos % (Auto) Baso % (Auto) Neut # (Auto) Lymph # (Auto) [place] # (Auto) Eos # (Auto) Baso # (Auto) WBC Differential Differential Comment PT 12.0 H INR 1.2 APTT 27.1 Sodium Potassium Chloride Carbon Dioxide Anion Gap BUN Creatinine Estimated GFR Random Glucose Calcium Total Bilirubin AST ALT Alkaline Phosphatase Troponin I Total Protein Albumin Lipase Urine Color Yellow Urine Clarity Clear Urine pH 6.0 Ur Specific [place] 1.044 H Urine Protein 100 H Urine Glucose (UA) Negative Urine Ketones Negative Urine Occult Blood Large H Urine Nitrate Negative Urine Bilirubin Negative Urine Urobilinogen Less than 2 Ur Leukocyte Esterase Negative Urine RBC 38 H Urine WBC 2 Urine Mucus Few H Micro UA Comment Culture not ind Urine Culture Comments Culture not ind Urine Opiates Screen Neg Ur Barbiturates Screen Neg Ur Amphetamines Screen Neg U Benzodiazepines Scrn Neg Urine Cocaine Screen Neg U Cannabinoids Screen Neg Serum Alcohol - Imaging Impressions Abdomen/Pelvis CT 02/02/18 18:53 CONCLUSION: 1. There is mild to moderate air distention of the colon in a nonobstructive pattern. Findings could represent a mild hypodynamic ileus. 2. Mild fluid distention of the gastric lumen. Nonspecific but can be seen in patients with a reported history of emesis. 3. Otherwise, no acute intraperitoneal or pelvic process to explain current clinical symptoms. Head CT 02/02/18 19:27 CONCLUSION: Negative exam . Chest X-Ray 02/02/18 19:44 CONCLUSION: Hyperinflation with no acute cardiopulmonary process. <Santo Yu - Last Filed: 02/03/18 12:42> Assessment and Plan (1) Left lower quadrant pain Status: Acute Code(s): R10.32 - Left lower quadrant pain (2) GI bleed Status: Acute Code(s): K92.2 - Gastrointestinal hemorrhage, unspecified (3) Ileus Status: Acute Code(s): K56.7 - Ileus, unspecified (4) History of constipation Status: Acute Code(s): Z87.19 - Personal history of other diseases of the digestive system - Plan Rectal bleeding blood in stool noted per brother who was initially with patient during his ER evaluation. Patient does note history of constipation and some possible straining which could explain the rectal blood seen. Today before transition to regular patient room patient had incontinent stool maroon colored blood noted. Left lower quadrant mild discomfort with light palpation. This also could be related to patient's constipation issues. CT scan shows mild to moderate air distention of the colon which could represent mild hypodynamic ileus. Nonobstructive pattern. Mild fluid distention in the gastric lumen, otherwise no acute intraperitoneal or pelvic process. History of schizophrenia poor historian. There is no current family present. Questionable EGD colonoscopy and family history, History of constipation stated per patient but thinks that his bowels move every day. This could be related to #1 with any straining or urgency. Colonic ileus mild hypodynamic, possibly related to some dehydration and constipation. Nausea and vomiting 2 days before admission but none at present time. The patient's been maintained on IV fluids at 100 cc an hour. Nurse noted large incontinent maroon colored stool when transitioning patient up to the medical floor. Patient was unaware but reported her findings to the GI team. Current hemoglobin stable but need to continue to monitor obvious maroon-colored rectal bleeding which could be diverticular bleed. Plan Diet, clear liquids today Consent for EGD colonoscopy in a.m. N.p.o. at midnight tonight except for needed medications GoLYTELY prep Bowel regimen, Dulcolax suppositories daily Continue IV hydration Anti-emetics PPI Monitor lab, monitor for any rectal bleeding Further recommendations will be dependent on patient's course and symptoms. Patient was seen per myself and Dr. Yu, note was written on his behalf <Ernestine Walsh - Last Filed: 02/03/18 12:10> (1) Left lower quadrant pain Status: Acute Code(s): R10.32 - Left lower quadrant pain (2) GI bleed Status: Acute Code(s): K92.2 - Gastrointestinal hemorrhage, unspecified (3) Ileus Status: Acute Code(s): K56.7 - Ileus, unspecified (4) History of constipation Status: Acute Code(s): Z87.19 - Personal history of other diseases of the digestive system - Plan Patient was seen and examined, agree with above note, plan for endoscopy and colonoscopy tomorrow <Santo Yu - Last Filed: 02/03/18 12:42>
--- NOTE | 2018-02-03 13:05 | ECG ---
Date Performed: 02/02/2018 Time Performed: 20:51:51 PTAGE: 63 years EKG: Sinus rhythm MARKED LEFT AXIS DEVIATION POSSIBLE RIGHT VENTRICULAR CONDUCTION DELAY MODERATE ST DEPRESSION ABNORM AL ECG Compared to PREVIOUS TRACING , left axis deviation and the slight ST depressions are new. PREVIOUS TR ACING DOCTOR: Nabeel Peraza Interpretating Date/Time 02/03/2018 13:04:41
--- NOTE | 2018-02-03 13:30 | P.CONPSY ---
Provisional Diagnosis Admission Date: February 03, 2018 00:25 [place] I.: Chronic schizophrenia History of Present Illness Service: Medicine Primary Care Provider: [facility] History of Present Illness: The patient is a 63-year-old -French man, domiciled in [facility], single, employed, on SSI, with psychiatric history of paranoid schizophrenia, multiple psychiatric hospitalizations, he denies previous suicidal attempts, he is on Prolixin 10 mg twice daily, Celexa 20 mg, Artane 4 mg twice daily, trazodone 200 mg at bedtime, he was hospitalized here at [facility] in [address] Sutherland, recommendation reviewed, with past medical history of HTN and who was brought to the ER by Brother for evaluation of nausea/vomiting x2 days. Per Brother pt has been nonverbal for approx 3 days. Brother states he noticed blood in patient's stool. Pt will not answer any questions. On arrival , BP 132/94, HR 110, O2 sat 97% on RA, Afebrile. CBC unremarkable, hemoglobin 14.7. INR 1.2. Chemistry essentially unremarkable except for BUN 22, calcium 11.3. Troponin 0 0.04. UA negative for UTI, + hematuria. Urine Drug Screen negative. Alcohol negative. CT Head negative. CXR with no acute findings. CT Abdomen/Pelvis mild to moderate distention in the colon, possibly mild hypodynamic ileus, mild fluid distention of gastric lumen. Consulted to psychiatry to addressed changes on behavior. EMR reviewed, the case was discussed with primary medical team. I try to get collateral information from his brother Saad Matias [phone], but he did not pick pulling machine tender the phone. However , on my psychiatric evaluation I find a patient that is calm, cooperative, pleasant. The patient is verbal, he is able to express that he is feeling much better. He does have a very flat affect and decrease speech production, but he is able to answer all my questions appropriately. He reports that his mood is okay, that he does not have any pain or distress, denies hopelessness, denies helplessness, denies hopelessness, denies suicidal and homicidal ideation, he denies visual and auditory hallucinations. The patient reports that he has paranoid schizophrenia, he has been on treatment for several years, stable, no prominent side effects. Is fully oriented 3, no attention deficit, no fluctuation of consciousness present. No paranoia, no loosening of associations , no ideas of reference, thought controlling, agitation or aggressive behavior present. The patient denies the use of alcohol and illegal drugs. PPHx: psychiatric history of paranoid schizophrenia, multiple psychiatric hospitalizations, he denies previous suicidal attempts, he is on Prolixin 10 mg twice daily, Celexa 20 mg, Artane 4 mg twice daily, trazodone 200 mg at bedtime , he was hospitalized here at [facility] in [address] Sutherland PMHx: HTN family psychiatrc history: he denies Sustacne Hx: He denies the use of alcohol and illegal drugs. Social Hx: Patient was born and raised in [facility], major support come from his brother, domiciled in [facility], single, employed, on SSI, Review of Systems Constitutional: Denies anorexia, Denies body ache(s), Denies chills, Denies daytime sleepiness, Denies excessive sweating, Denies fatigue, Denies fever(s), Denies headache(s), Denies increased appetite, Denies lack of energy, Denies malaise, Denies night sweats, Denies weakness, Denies weight gain, Denies weight loss, Denies other Eyes: Denies blind spots, Denies blurry vision, Denies bulging eyes, Denies change in vision, Denies double vision, Denies discharge, Denies dry eyes, Denies floaters, Denies irritation, Denies itchy eyes, Denies loss of vision, Denies pain, Denies requires corrective lenses, Denies sensitivity to light, Denies other Ears, Nose, Mouth, and Throat: Denies abnormal hearing, Denies bleeding gums, Denies bad breath, Denies change in voice, Denies dental pain, Denies difficulty swallowing, Denies dizziness, Denies dry mouth, Denies ear discharge , Denies ear pain, Denies facial pain, Denies headache(s), Denies hearing loss, Denies hoarseness, Denies lip swelling, Denies nosebleed, Denies mouth lesions, Denies mouth pain, Denies nasal congestion, Denies nasal discharge, Denies nasal obstruction, Denies nasal trauma, Denies neck lump, Denies neck pain, Denies nose pain, Denies pain with swallowing, Denies poor balance, Denies post nasal drip, Denies ringing in the ears, Denies sinus pain, Denies sinus pressure , Denies sore throat, Denies throat swelling, Denies tongue swelling, Denies other Cardiovascular: Denies chest pain, Denies chest pain at rest, Denies chest pain with activity, Denies excessive sweating, Denies fainting, Denies fast heart rate, Denies foot swelling, Denies generalized swelling, Denies irregular heart rhythm, Denies leg pain with activity, Denies leg sores, Denies leg swelling, Denies lightheadedness, Denies radiating jaw, neck or arm pain, Denies rapid, pounding, or irregular heartbeat, Denies shortness of breath, Denies shortness of breath with activity, Denies shortness of breath when lying down, Denies shortness of breath causing sudden awakening, Denies slow heart rate, Denies other Respiratory: Denies change in phlegm color, Denies chest congestion, Denies cough, Denies coughing up blood, Denies excessive phlegm production, Denies pain on inspiration, Denies pain with cough, Denies shortness of breath, Denies shortness of breath with activity, Denies snoring, Denies stridor, Denies wheezing, Denies other Gastrointestinal: Reports bloating, Reports heartburn Genitourinary: Denies blood in semen, Denies blood in urine, Denies decreased urination, Denies difficulty urinating, Denies difficulty with ejaculations, Denies erectile dysfunction, Denies genital lesions, Denies genital pain, Denies painful urination, Denies side pain, Denies frequent nighttime urination , Denies painful ejaculations, Denies penile discharge, Denies scrotal swelling , Denies testicle lump, Denies testicle pain, Denies urinary frequency, Denies urinary hesitancy, Denies urinary incontinence, Denies urinary urgency, Denies other Musculoskeletal: Denies abnormal walking, Denies back pain, Denies body aches, Denies decreased muscle mass, Denies deformity, Denies joint pain, Denies joint swelling, Denies limited joint movement, Denies loss of height, Denies muscle cramps, Denies muscle weakness, Denies neck pain, Denies numbness, Denies radiating pain into limb, Denies stiffness, Denies tingling, Denies other Skin/Breast: Denies acne, Denies bleeding lesions, Denies boil, Denies breast swelling, Denies breast skin changes, Denies breast pain, Denies breast lump, Denies change in breast shape, Denies change in hair, Denies change in skin color, Denies changing lesions, Denies dry skin, Denies excessive hair growth, Denies hair loss, Denies itching, Denies lesions, Denies nail changes, Denies new lesions, Denies nipple discharge, Denies non-healing lesions, Denies redness , Denies sensitivity to light, Denies rash, Denies skin pain, Denies skin ulcer , Denies sores, Denies stretch mcdonough, Denies unusual bruising, Denies wounds, Denies yellowing of the skin, Denies other Psychiatric: Denies abnormal sleep pattern, Denies anxiety, Denies behavioral changes, Denies change in appetite, Denies change in sex drive, Denies confusion , Denies depression, Denies difficulty concentrating, Denies hearing things others do not hear, Denies hopelessness, Denies irritability, Denies lack of enjoyment, Denies memory loss, Denies mood swings, Denies panic attacks, Denies paranoia, Denies seeing things others do not see, Denies sensing things others do not sense, Denies tactile hallucinations, Denies thoughts of hurting/killing others, Denies thoughts of hurting/killing yourself, Denies other (blocking thouhgt ) PMFSH - History History Provided By: Patient - Medical History Medical History: Medical History (Last Updated 02/02/18 @ 18:42 by Marleen Bee) Schizophrenia, paranoid - Tobacco History Second Hand Smoke Exposure: Yes Tobacco Use In Past 30 Days: Yes Smoking Status: Current every day smoker Tobacco Type: Cigarettes - Alcohol History How Often Do You Have a Drink Containing Alcohol: Never - Substance Use History Substance History: Active Abuse - Substance Use Type Marijuana Status: Active Route Used: Inhalation Reason for Use: Calm Down - Travel History Recent Travel in the [place] Within the Last 8 Weeks: No Recent Travel Out of the Country Within the Last 8 Weeks: No - Immunization History Tetanus Immunization: <5 Years Hx Influenza Vaccine This Season: Yes Medications and Allergies Active Medications: Active Medications Acetaminophen (Tylenol) 650 mg PO Q4H PRN PRN Reason: Temp > 100.4 Al Hydroxide/Mg Hydroxide (Milk Of Magnesia Liq) 30 ml PO Q12H PRN PRN Reason: Mild Constipation Bisacodyl (Dulcolax Supp) 10 mg RECTAL DAILY [facility] Citalopram Hydrobromide (Celexa) 20 mg PO DAILY [facility] Fluphenazine HCl (Prolixin) 10 mg PO BID [facility] Sodium Chloride (Ns Inj) 1,000 mls @ 100 mls/hr IV.CONT .Q10H [facility] Last Infusion: 02/03/18 09:56 Dose: 0 mls/hr Lactulose (Lactulose Liq) 30 ml PO DAILY PRN PRN Reason: SEVERE CONSITIPATION Lorazepam (Ativan) 1 mg PO TID [facility] Ondansetron HCl (Zofran Inj) 4 mg IV.PUSH Q6H PRN PRN Reason: NAUSEA OR VOMITING Pantoprazole Sodium (Protonix Inj) 40 mg IV.PUSH Q12H [facility] Last Admin: 02/03/18 08:49 Dose: 40 mg Polyethylene Glycol/Electrolytes (Colyte Liq) 4,000 ml PO ONCE ONE Stop: 02/03/18 16:01 Prochlorperazine Edisylate (Compazine Inj) 10 mg IV.PUSH Q6H PRN PRN Reason: NAUSEA/VOMITING Senna/Docusate Sodium (Anny-Colace) 1 tab PO BID [facility] Last Admin: 02/03/18 08:49 Dose: 1 tab Sennosides (Senokot) 17.2 mg PO Q12H PRN PRN Reason: Moderate Constipation Sodium Chloride (Ns Flush) 2 ml IV.FLUSH PRN PRN PRN Reason: FLUSH AFTER USING IV ACCESS Trazodone HCl (Desyrel) 200 mg PO HS [facility] Trihexyphenidyl HCl (Artane) 4 mg PO BID [facility] Allergies Allergy/AdvReac Type Severity Reaction Status Date / Time cimetidine Allergy Severe Vomiting Verified 02/03/18 01:04 penicillin G Allergy Severe Vomiting Verified 02/03/18 01:04 h2 inhibitor Allergy Unknown Vomiting Uncoded 02/02/18 18:44 PCN,XPREXIA,STERAZONE Allergy Unknown Vomiting Uncoded 02/02/18 18:44 Home Medications Medication Instructions Recorded Confirmed Type acetaminophen [Tylenol Extra 500 mg PO Q4-6H PRN 02/02/18 02/02/18 History Strength] amlodipine 5 mg PO DAILY 02/02/18 02/02/18 History citalopram 20 mg PO DAILY 02/02/18 02/02/18 History cyanocobalamin (vitamin B-12) 500 mcg PO DAILY 02/02/18 02/02/18 History [Vitamin B-12] fluphenazine HCl 10 mg PO BID 02/02/18 02/02/18 History hydrochlorothiazide 12.5 mg PO DAILY 02/02/18 02/02/18 History lorazepam 1 mg PO TID 02/02/18 02/02/18 History multivitamin with minerals 1 tab PO TID 02/02/18 02/02/18 History omeprazole 20 mg PO DAILY 02/02/18 02/02/18 History potassium chloride 20 meq PO BID 02/02/18 02/02/18 History trazodone 200 mg PO HS 02/02/18 02/02/18 History trihexyphenidyl 4 mg PO BID 02/02/18 02/02/18 History Exam Vital signs: Vital Signs 02/02/18 17:21 02/02/18 22:08 02/02/18 23:35 Temperature 98.5 F Pulse Rate 110 H 92 H 88 Respiratory Rate 12 18 18 Blood Pressure 132/94 H 187/97 H 188/97 H Pulse Oximetry 97 98 02/03/18 02:58 02/03/18 04:00 02/03/18 08:00 Temperature 98.3 F 98.5 F 98.0 F Pulse Rate 88 91 H 77 Respiratory Rate 18 16 16 Blood Pressure 158/88 H 156/86 H 181/98 H Pulse Oximetry 95 99 98 02/03/18 08:54 02/03/18 12:00 Temperature 97.9 F Pulse Rate 76 Respiratory Rate 18 Blood Pressure 176/91 H Pulse Oximetry 98 97 Intake & Output 02/02/18 02/03/18 02/03/18 18:59 06:59 18:59 Intake Total 1240 / 1240 Balance 1240 / 1240 Weight 65.771 kg 65.77 kg Intake: IV 1000 / 1000 NS Inj 1,000 ML @ Wide Open IV. 1000 / 1000 SIG BOLUS ONE Rx#:[id number] Oral 240 / 240 Other: # Voids 2 Date of Last Bowel Movement 08/17/18 Weight On Admission 65.771 kg Narrative: Psychiatric evaluation today the patient presents with flat affect, decreased speech production, blocking thought, but he is mostly logical, coherent, relevant, able to provide information for the psychiatric assessment. He denies symptomatology of depression, he denies anxiety, denies babar and psychosis. Seems to me that above described symptoms are part of residual schizophrenia. He denies suicidal enemas ideation, he denies visual and auditory hallucinations. The patient is on treatment of schizophrenia for a long time, with good response, no significant side effects. I do not see any recent for psychiatric admission at this moment. Continue Prolixin 10 mg twice daily, trazodone 200 mg at bedtime, Celexa 40 mg, Artane 4 mg twice daily. Will Follow-up in the medical floor Assessment and Plan - Plan Plan: Estimated LOS: [] days Justification for Continued Inpatient Stay: No admission indicated in this patient at the moment
--- NOTE | 2018-02-03 15:27 | P.PN ---
Subjective Interval history: Seen lying in bed. Nurses present. Patient is a very poor historian, but is verbal and does answer questions. Does not say much beyond that his "hands are stiff". Does not appear to be aware of his current GI bleed or other issues. Nurse reports continued passage of stool with large clots. Physical Exam Vital signs: Vital Signs 02/02/18 17:21 02/02/18 22:08 02/02/18 23:35 Temperature 98.5 F Pulse Rate 110 H 92 H 88 Respiratory Rate 12 18 18 Blood Pressure 132/94 H 187/97 H 188/97 H Pulse Oximetry 97 98 02/03/18 02:58 02/03/18 04:00 02/03/18 08:00 Temperature 98.3 F 98.5 F 98.0 F Pulse Rate 88 91 H 77 Respiratory Rate 18 16 16 Blood Pressure 158/88 H 156/86 H 181/98 H Pulse Oximetry 95 99 98 02/03/18 08:54 02/03/18 12:00 Temperature 97.9 F Pulse Rate 76 Respiratory Rate 18 Blood Pressure 176/91 H Pulse Oximetry 98 97 Intake & Output 02/02/18 02/03/18 02/03/18 18:59 06:59 18:59 Intake Total 1240 / 1240 240 / 240 Balance 1240 / 1240 240 / 240 Weight 65.771 kg 65.77 kg Intake: IV 1000 / 1000 NS Inj 1,000 ML @ Wide Open IV. 1000 / 1000 SIG BOLUS ONE Rx#:[id number] Oral 240 / 240 240 / 240 Other: # Voids 2 Date of Last Bowel Movement 02/03/18 Weight On Admission 65.771 kg Narrative: GENERAL: Thin, well-developed adult male in no obvious distress. SKIN: Warm and dry. HEAD: Atraumatic. Normocephalic. CARDIOVASCULAR: Regular rate and rhythm. RESPIRATORY: No accessory muscle use. Clear to auscultation. Breath sounds equal bilaterally. GASTROINTESTINAL: Abdomen soft, non-tender, non-distended. Positive bowel sounds. MUSCULOSKELETAL: Extremities without clubbing, cyanosis, or edema. No obvious deformities. NEUROLOGICAL: Awake and alert. No obvious cranial nerve deficits. Motor grossly within normal limits. Normal speech. PSYCHIATRIC: Oriented to self primarily. Calm. Results - Labs CBC & Chem 7: 02/02/18 21:55 02/02/18 19:04 Laboratory Results - last 24 hr 02/02/18 02/02/18 02/02/18 19:04 21:55 21:55 WBC 9.4 RBC 4.64 Hgb 14.7 Hct 43.8 MCV 94.5 MCH 31.8 MCHC 33.7 RDW 13.5 Plt Count 233 MPV 6.6 L Neut % (Auto) 77.9 H Lymph % (Auto) 14.4 Hubbard % (Auto) 7.3 Eos % (Auto) 0.1 Baso % (Auto) 0.3 Neut # (Auto) 7.3 Lymph # (Auto) 1.3 Hubbard # (Auto) 0.7 Eos # (Auto) 0.0 Baso # (Auto) 0.0 WBC Differential . Differential Comment Auto diff final PT INR APTT Sodium 135 L Potassium 4.3 Chloride 97 L Carbon Dioxide 26.8 Anion Gap 11 BUN 22 H Creatinine 1.13 Estimated GFR 79 L Random Glucose 152 H Calcium 11.3 H Total Bilirubin 0.6 AST 32 ALT 25 Alkaline Phosphatase 88 Troponin I 0.04 Total Protein 9.7 H Albumin 4.7 Lipase 90 Urine Color Urine Clarity Urine pH Ur Specific [place] Urine Protein Urine Glucose (UA) Urine Ketones Urine Occult Blood Urine Nitrate Urine Bilirubin Urine Urobilinogen Ur Leukocyte Esterase Urine RBC Urine WBC Urine Mucus Micro UA Comment Urine Culture Comments Urine Opiates Screen Ur Barbiturates Screen Ur Amphetamines Screen U Benzodiazepines Scrn Urine Cocaine Screen U Cannabinoids Screen Serum Alcohol Less than 3 02/02/18 02/02/18 02/02/18 21:55 21:55 21:55 WBC RBC Hgb Hct MCV MCH MCHC RDW Plt Count MPV Neut % (Auto) Lymph % (Auto) Hubbard % (Auto) Eos % (Auto) Baso % (Auto) Neut # (Auto) Lymph # (Auto) Hubbard # (Auto) Eos # (Auto) Baso # (Auto) WBC Differential Differential Comment PT 12.0 H INR 1.2 APTT 27.1 Sodium Potassium Chloride Carbon Dioxide Anion Gap BUN Creatinine Estimated GFR Random Glucose Calcium Total Bilirubin AST ALT Alkaline Phosphatase Troponin I Total Protein Albumin Lipase Urine Color Yellow Urine Clarity Clear Urine pH 6.0 Ur Specific [place] 1.044 H Urine Protein 100 H Urine Glucose (UA) Negative Urine Ketones Negative Urine Occult Blood Large H Urine Nitrate Negative Urine Bilirubin Negative Urine Urobilinogen Less than 2 Ur Leukocyte Esterase Negative Urine RBC 38 H Urine WBC 2 Urine Mucus Few H Micro UA Comment Culture not ind Urine Culture Comments Culture not ind Urine Opiates Screen Neg Ur Barbiturates Screen Neg Ur Amphetamines Screen Neg U Benzodiazepines Scrn Neg Urine Cocaine Screen Neg U Cannabinoids Screen Neg Serum Alcohol - Imaging Impressions Abdomen/Pelvis CT 02/02/18 18:53 CONCLUSION: 1. There is mild to moderate air distention of the colon in a nonobstructive pattern. Findings could represent a mild hypodynamic ileus. 2. Mild fluid distention of the gastric lumen. Nonspecific but can be seen in patients with a reported history of emesis. 3. Otherwise, no acute intraperitoneal or pelvic process to explain current clinical symptoms. Head CT 02/02/18 19:27 CONCLUSION: Negative exam . Chest X-Ray 02/02/18 19:44 CONCLUSION: Hyperinflation with no acute cardiopulmonary process. Assessment and Plan - Assessment (1) Ileus Code(s): K56.7 - Ileus, unspecified Status: Acute (2) GI bleed Code(s): K92.2 - Gastrointestinal hemorrhage, unspecified Status: Acute (3) Schizophrenia Code(s): F20.9 - Schizophrenia, unspecified Status: Acute - Plan Patient is a 63-year-old -[place] male with a past medical history of hypertension and schizophrenia who was brought to the ER with a complaint of nausea vomiting. Brother also reports that he noticed blood in the patient's stool. Patient is a very poor historian. A/P: 1. Ileus: nausea/vomiting x2 days per family member, CT Abd/Pelvis w/ mild to moderate air distention of the colon, likely hypodynamic ileus, images reviewed. NPO, IVF, antiemetics as needed. 2. GI Bleed: Hemoccult +, Hgb stable at 14.7, will repeat Hgb/Hct in am, Protonix IV, Consult GI for further evaluation. 3. Schizophrenia: nonverbal x3 days per Brother;talking now, consult Psychiatry for further evaluation/recommendations. 4. DVT Prophylaxis: Pharmacologic contraindication in light of GI Bleed 5. Social work for DC planning as needed.
[2018-02-03] MEDS: PEG 3350/E-Lyte Soln 4000 ML Bottle PO ONE ×2 (16:53→18:33)
[2018-02-03] MEDS: Bisacodyl 10 MG Supp RECTAL SCH (16:53)
[2018-02-03 17:37] LABS: Baso # (Auto) 0.1 th/mm3 (0.0-0.2); Baso % (Auto) 0.4 % (0.0-2.0); Eos % (Auto) 0.3 % (0.0-4.0); Hematocrit 40.5 % (39.0-51.0); Hemoglobin 13.9 gm/dL (13.0-17.0); Lymph # (Auto) 2.3 th/mm3 (1.0-4.8); Lymph % (Auto) 17.7 % (9.0-44.0); Mean Corpuscular HGB Conc 34.2 % (32.0-36.0); Mean Corpuscular Hemoglobin 31.7 pg (27.0-34.0); Mean Corpuscular Volume 92.7 fL (80.0-100.0); Mean Platelet Volume 7.1 fL (7.0-11.0); Mono # (Auto) 1.4 th/mm3 (0.0-0.9); Mono % (Auto) 11.2 % (0.0-8.0); Neut % (Auto) 70.4 % (16.0-70.0); Platelet Count 240 th/mm3 (150-450); Red Blood Count 4.37 mil/mm3 (4.50-5.90); Red Cell Distribution Width 13.5 % (11.6-17.2); White Blood Count 12.8 th/mm3 (4.0-11.0)
[2018-02-03] MEDS: LORazepam 1 MG Tablet PO SCH (18:33)
[2018-02-03] MEDS: traZODone 100 MG Tablet PO SCH (21:49)
[2018-02-04 08:06] LABS: Baso % (Auto) 0.4 % (0.0-2.0); Eos % (Auto) 0.2 % (0.0-4.0); Hematocrit 38.5 % (39.0-51.0); Hemoglobin 13.2 gm/dL (13.0-17.0); Lymph # (Auto) 1.8 th/mm3 (1.0-4.8); Lymph % (Auto) 17.3 % (9.0-44.0); Mean Corpuscular HGB Conc 34.3 % (32.0-36.0); Mean Corpuscular Hemoglobin 31.7 pg (27.0-34.0); Mean Corpuscular Volume 92.5 fL (80.0-100.0); Mono % (Auto) 9.3 % (0.0-8.0); Neut # (Auto) 7.7 th/mm3 (1.8-7.7); Neut % (Auto) 72.8 % (16.0-70.0); Platelet Count 222 th/mm3 (150-450); Red Blood Count 4.16 mil/mm3 (4.50-5.90); Red Cell Distribution Width 13.2 % (11.6-17.2); White Blood Count 10.6 th/mm3 (4.0-11.0)
[2018-02-04 08:34] LABS: Alanine Aminotransferase 22 U/L (12-78); Albumin 3.7 g/dL (3.4-5.0); Anion Gap 10 meq/L (5-15); Aspartate Aminotransferase 27 U/L (15-37); Blood Urea Nitrogen 22 mg/dL (7-18); Calcium 8.9 mg/dL (8.5-10.1); Carbon Dioxide 26.9 meq/L (21.0-32.0); Chloride 97 meq/L (98-107); Glomerular Filtration Rate Greater Than 89 mL/min (>89); Glucose,Random 92 mg/dL (74-106); Potassium 3.6 meq/L (3.5-5.1); Sodium 134 meq/L (136-145)
[2018-02-04 08:37] LABS: Alkaline Phosphatase 65 U/L (45-117); Total Protein 7.4 g/dL (6.4-8.2)
[2018-02-04] MEDS: Sod Chloride 0.9% Inj 1,000 ML IV.CONT SCH ×2 (08:50→17:19)
--- NOTE | 2018-02-04 11:04 | P.PN ---
Subjective Interval history: This is a pleasant 63 y/o Male admitted with diagnosis of GI bleed, at this time will go for EGD and Colonoscopy. Physical Exam Vital signs: Vital Signs 02/03/18 12:00 02/03/18 20:00 02/04/18 00:00 Temperature 97.9 F 97.7 F 99.4 F Pulse Rate 76 99 H 80 Respiratory Rate 18 17 17 Blood Pressure 176/91 H 152/94 H 183/99 H Pulse Oximetry 97 99 96 02/04/18 04:00 02/04/18 08:00 Temperature 98.9 F 98.9 F Pulse Rate 98 H 78 Respiratory Rate 17 16 Blood Pressure 126/77 125/68 Pulse Oximetry 97 100 Intake & Output 02/03/18 02/04/18 02/04/18 18:59 06:59 18:59 Intake Total 480 / 480 960 / 960 0 / 0 Balance 480 / 480 960 / 960 0 / 0 Intake: IV 0 / 0 NS Inj 1,000 ML @ 100 mls/hr IV 0 / 0 .CONT .Q10H ALIN Rx#:[id number] Oral 480 / 480 960 / 960 Other: Date of Last Bowel Movement 02/03/18 # Bowel Movements 3 1 Narrative: GENERAL: Thin, well-developed adult male in no obvious distress. SKIN: Warm and dry. HEAD: Atraumatic. Normocephalic. CARDIOVASCULAR: Regular rate and rhythm. RESPIRATORY: No accessory muscle use. Clear to auscultation. Breath sounds equal bilaterally. GASTROINTESTINAL: Abdomen soft, non-tender, non-distended. Positive bowel sounds. MUSCULOSKELETAL: Extremities without clubbing, cyanosis, or edema. No obvious deformities. NEUROLOGICAL: Awake and alert. No obvious cranial nerve deficits. Motor grossly within normal limits. Normal speech. PSYCHIATRIC: Oriented to self primarily. Calm. Results - Labs CBC & Chem 7: 02/04/18 07:33 02/04/18 07:33 Laboratory Results - last 24 hr 02/03/18 02/04/18 02/04/18 16:15 07:33 07:33 WBC 12.8 H 10.6 RBC 4.37 L 4.16 L Hgb 13.9 13.2 Hct 40.5 38.5 L MCV 92.7 92.5 MCH 31.7 31.7 MCHC 34.2 34.3 RDW 13.5 13.2 Plt Count 240 222 MPV 7.1 7.0 Neut % (Auto) 70.4 H 72.8 H Lymph % (Auto) 17.7 17.3 Harmon % (Auto) 11.2 H 9.3 H Eos % (Auto) 0.3 0.2 Baso % (Auto) 0.4 0.4 Neut # (Auto) 9.0 H 7.7 Lymph # (Auto) 2.3 1.8 Harmon # (Auto) 1.4 H 1.0 H Eos # (Auto) 0.0 0.0 Baso # (Auto) 0.1 0.0 WBC Differential . . Differential Comment Auto diff final Auto diff final Sodium 134 L Potassium 3.6 Chloride 97 L Carbon Dioxide 26.9 Anion Gap 10 BUN 22 H Creatinine 0.88 Estimated GFR Greater than 89 Random Glucose 92 Calcium 8.9 D Total Bilirubin 0.7 AST 27 ALT 22 Alkaline Phosphatase 65 Total Protein 7.4 D Albumin 3.7 D - Imaging Abdomen/Pelvis CT 02/02/18 18:53 CONCLUSION: 1. There is mild to moderate air distention of the colon in a nonobstructive pattern. Findings could represent a mild hypodynamic ileus. 2. Mild fluid distention of the gastric lumen. Nonspecific but can be seen in patients with a reported history of emesis. 3. Otherwise, no acute intraperitoneal or pelvic process to explain current clinical symptoms. Head CT 02/02/18 19:27 CONCLUSION: Negative exam . Chest X-Ray 02/02/18 19:44 CONCLUSION: Hyperinflation with no acute cardiopulmonary process. Assessment and Plan - Assessment (1) Ileus Code(s): K56.7 - Ileus, unspecified Status: Acute (2) GI bleed Code(s): K92.2 - Gastrointestinal hemorrhage, unspecified Status: Acute (3) Schizophrenia Code(s): F20.9 - Schizophrenia, unspecified Status: Acute - Plan Patient is a 63-year-old -Vietnamese male with a past medical history of hypertension and schizophrenia who was brought to the ER with a complaint of nausea vomiting. Brother also reports that he noticed blood in the patient's stool. Patient is a very poor historian. A/P: 1. Ileus: nausea/vomiting x2 days per family member, CT Abd/Pelvis w/ mild to moderate air distention of the colon, likely hypodynamic ileus, images reviewed. NPO, IVF, antiemetics as needed. 2. GI Bleed: Hemoccult +, Hgb stable at 14.7, will repeat Hgb/Hct in am, Protonix IV, at this time will go for EGD and Colonoscopy. Hemoglobin stable. 3. Schizophrenia: nonverbal x3 days per Brother;talking now, Psych consult performed and no further evaluation. DVT Prophylaxis: Pharmacologic contraindication in light of GI Bleed Social work for DC planning as needed. Code Status: Full code. Discussed Condition With: patient and nurse in the room. Discharge Planning: Once cleared by GI specialist.
[2018-02-04] MEDS: Citalopram 20 MG Tablet PO SCH (13:43)
[2018-02-04] MEDS: LORazepam 1 MG Tablet PO SCH ×3 (13:43→17:38)
[2018-02-04] MEDS: Pantoprazole Inj 40 MG Vial IV.PUSH SCH ×2 (13:44→20:40)
[2018-02-04] MEDS: Senna/Docusate Sodium 8.6/50 MG Tablet PO SCH ×2 (13:44→20:37)
[2018-02-04] MEDS: Bisacodyl 10 MG Supp RECTAL SCH (13:45)
[2018-02-04] MEDS ORDERED: Magnesium Citrate Liq 300 ML Bottle PO ONE ×2 (15:11→17:00)
--- NOTE | 2018-02-04 15:19 | P.PNGI ---
Subjective Interval history: up to bathrm. Working on SnapYeti prep this pm No Abd. pain, nausea Physical Exam Vital signs: Vital Signs 02/03/18 20:00 02/04/18 00:00 02/04/18 04:00 Temperature 97.7 F 99.4 F 98.9 F Pulse Rate 99 H 80 98 H Respiratory Rate 17 17 17 Blood Pressure 152/94 H 183/99 H 126/77 Pulse Oximetry 99 96 97 02/04/18 08:00 02/04/18 12:00 Temperature 98.9 F 98 F Pulse Rate 78 81 Respiratory Rate 16 16 Blood Pressure 125/68 185/88 H Pulse Oximetry 100 100 Intake & Output 02/03/18 02/04/18 02/04/18 18:59 06:59 18:59 Intake Total 480 / 480 960 / 960 0 / 0 Balance 480 / 480 960 / 960 0 / 0 Intake: IV 0 / 0 NS Inj 1,000 ML @ 100 mls/hr IV 0 / 0 .CONT .Q10H [facility] Rx#:[id number] Oral 480 / 480 960 / 960 Other: Date of Last Bowel Movement 02/03/18 02/04/18 # Bowel Movements 3 1 - Constitutional no acute distress, chronically ill appearing - Routine HEENT Exam Head: Present: normocephalic ENT: Present: mucous membranes dry - Routine Respiratory Exam Present: accessory muscle use (No SOB) - Routine Abdominal Exam Present: soft (flat, ) Results - Labs CBC & Chem 7: 02/04/18 07:33 02/04/18 07:33 Laboratory Results - last 24 hr 02/03/18 02/04/18 02/04/18 16:15 07:33 07:33 WBC 12.8 H 10.6 RBC 4.37 L 4.16 L Hgb 13.9 13.2 Hct 40.5 38.5 L MCV 92.7 92.5 MCH 31.7 31.7 MCHC 34.2 34.3 RDW 13.5 13.2 Plt Count 240 222 MPV 7.1 7.0 Neut % (Auto) 70.4 H 72.8 H Lymph % (Auto) 17.7 17.3 Oliver % (Auto) 11.2 H 9.3 H Eos % (Auto) 0.3 0.2 Baso % (Auto) 0.4 0.4 Neut # (Auto) 9.0 H 7.7 Lymph # (Auto) 2.3 1.8 Oliver # (Auto) 1.4 H 1.0 H Eos # (Auto) 0.0 0.0 Baso # (Auto) 0.1 0.0 WBC Differential . . Differential Comment Auto diff final Auto diff final Sodium 134 L Potassium 3.6 Chloride 97 L Carbon Dioxide 26.9 Anion Gap 10 BUN 22 H Creatinine 0.88 Estimated GFR Greater than 89 Random Glucose 92 Calcium 8.9 D Total Bilirubin 0.7 AST 27 ALT 22 Alkaline Phosphatase 65 Total Protein 7.4 D Albumin 3.7 D Assessment and Plan (1) Left lower quadrant pain Status: Acute Code(s): R10.32 - Left lower quadrant pain (2) GI bleed Status: Acute Code(s): K92.2 - Gastrointestinal hemorrhage, unspecified (3) Ileus Status: Acute Code(s): K56.7 - Ileus, unspecified (4) History of constipation Status: Acute Code(s): Z87.19 - Personal history of other diseases of the digestive system - Plan Rectal bleeding blood in stool noted per brother who was initially with patient during his ER evaluation. Patient does note history of constipation and some possible straining which could explain the rectal blood seen. Today before transition to regular patient room patient had incontinent stool maroon colored blood noted. Left lower quadrant mild discomfort with light palpation. This also could be related to patient's constipation issues. CT scan shows mild to moderate air distention of the colon which could represent mild hypodynamic ileus. Nonobstructive pattern. Mild fluid distention in the gastric lumen, otherwise no acute intraperitoneal or pelvic process. History of schizophrenia poor historian. There is no current family present. Questionable EGD colonoscopy and family history, History of constipation stated per patient but thinks that his bowels move every day. This could be related to #1 with any straining or urgency. Colonic ileus mild hypodynamic, possibly related to some dehydration and constipation. Nausea and vomiting 2 days before admission but none at present time. The patient's been maintained on IV fluids at 100 cc an hour. Nurse noted large incontinent maroon colored stool when transitioning patient up to the medical floor. Patient was unaware but reported her findings to the GI team. Current hemoglobin stable but need to continue to monitor obvious maroon-colored rectal bleeding which could be diverticular bleed. 02/04/2018, Patient continues colon prep sipping Golytely and added extra Mag. Citrate today. Patient prep incomplete early am. Plan EGD/Colonoscopy in am, Plan Diet, clear liquids EGD colonoscopy in a.m. N.p.o. at midnight Added Mag. Citrate prep. X 2 Anti-emetics PPI Monitor lab, monitor for any rectal bleeding Further recommendations to follow after EGD/Colonoscopy Patient was seen per myself and Dr. Vidal, note was written on his behalf
[2018-02-04] MEDS: traZODone 100 MG Tablet PO SCH (20:37)
[2018-02-05] MEDS: Sod Chloride 0.9% Inj 1,000 ML IV.CONT SCH ×2 (02:32→12:49)
--- NOTE | 2018-02-05 10:46 | GIPROC ---
[facility] [address] [facility]. [facility], [address] COLONOSCOPY PROCEDURE REPORT EXAM DATE: 02/05/2018 PATIENT NAME: Jaswinder Matias MR #: [id number] BIRTHDATE: 1955 ENDOSCOPIST: Cooper Vidal MD ORDER #: [id number] FELT PAD CUTTER: Al Landry STATUS: inpatient INDICATIONS: The patient is a 63 yr old male here for a colonoscopy due to rectal bleeding PROCEDURE PERFORMED: Colonoscopy, diagnostic MEDICATIONS: None and Per Anesthesia. PREP QUALITY: poor ESTIMATED BLOOD LOSS: None CONSENT: The patient understands the risks and benefits of the procedure and understands that these risks include, but are not limited to: sedation, allergic reaction, infection, perforation and/or bleeding. Alternative means of evaluation and treatment include, among others: physical exam, x-rays, and/or surgical intervention. The patient elects to proceed with this endoscopic procedure. medical equipment was checked for proper function. Hand hygiene and appropriate measures for infection prevention was taken. After the risks, benefits and alternatives of the procedure were thoroughly explained, Informed consent was verified, confirmed and timeout was successfully executed by the treatment team. A digital exam was performed and revealed no abnormalities of the rectum The Pentax EC-[id number] endoscope was introduced through the anus and advanced to the cecum, which was identified by both the appendix and ileocecal valve. The instrument was then slowly withdrawn as the colon was fully examined. COLON FINDINGS: Mild diverticulosis was noted in the sigmoid colon. Retroflexed views revealed internal hemorrhoids and Retroflexed views revealed small internal hemorrhoids The scope was then completely withdrawn from the patient and the procedure terminated. PROCEDURE WITHDRAWAL TIME:8minutes ADVERSE EVENTS: There were no complications. IMPRESSIONS: 1. Mild diverticulosis was noted in the sigmoid colon 2. Retroflexed views revealed internal hemorrhoids 3. Retroflexed views revealed small internal hemorrhoids 4. Was performed 5. Revealed no abnormalities of the rectum RECOMMENDATIONS: Monitor CBC If anemia persis/ bleeding recurs do PILLCAM RECALL: Return 1 year Colonoscopy Cooper Vidal MD eSigned: Cooper Vidal MD 02/05/2018 10:46 AM cc: PATIENT NAME: Jaswinder Matias MR#: [id number]
--- NOTE | 2018-02-05 10:49 | GIPROC ---
[facility] [address] [facility]. [facility] [place], [address] EGD PROCEDURE REPORT EXAM DATE: 02/05/2018 PATIENT NAME: Jaswinder Matias MR #: [id number] BIRTHDATE: 1955 ATTENDING: Cooper Vidal MD ORDER #: [id number] DAYTIME BABYSITTER: Al Landry STATUS: inpatient INDICATIONS: The patient is a 63 yr old male here for an EGD due to dyspepsia, nausea, and vomiting PROCEDURE PERFORMED: EGD w/ biopsy MEDICATIONS: None and Per Anesthesia. TOPICAL ANESTHETIC: none CONSENT: The patient understands the risks and benefits of the procedure and understands that these risks include, but are not limited to: sedation, allergic reaction, infection, perforation and/or bleeding. Alternative means of evaluation and treatment include, among others: physical exam, x-rays, and/or surgical intervention. The patient elects to proceed with this endoscopic procedure. medical equipment was checked for proper function. Hand hygiene and appropriate measures for infection prevention was taken. After the risks, benefits and alternatives of the procedure were thoroughly explained, Informed consent was verified, confirmed and timeout was successfully executed by the treatment team. The patient was anesthetized with topical anesthesia and the EC-[id number] (Pedi C) endoscope was introduced through the mouth and advanced to the second portion of the duodenum. Retroflexed views revealed a hiatal hernia The gastroscope was then slowly withdrawn and removed. ESOPHAGUS: There was LA Class A esophagitis noted. STOMACH: There was mild antral gastropathy noted. Cold forcep biopsies were taken at the antrum and angularis. DUODENUM: The duodenal mucosa appeared normal in the entire duodenum. ADVERSE EVENTS: There were no complications. IMPRESSIONS: 1. There was LA Class A esophagitis noted 2. There was mild antral gastropathy noted [T2] 3. Normal duodenal mucosa in the entire duodenum 4. Retroflexed views revealed a hiatal hernia RECOMMENDATIONS: Await biopsy results. Biopsy results will not be ready for 7-10 days. If you don't hear from us in two weeks, call our office for biopsy results. PATIENT CONDITION: stable DISPOSITION: Inpatient REPEAT EXAM: Return as needed for EGD Cooper Vidal MD eSigned: Cooper Vidal MD 02/05/2018 10:48 AM cc: PATIENT NAME: Jaswinder Matias MR#: [id number]
[2018-02-05] MEDS ORDERED: Lidocaine PF 1% Inj 5 ML Syringe INFILTRATN ONE (12:00)
--- NOTE | 2018-02-05 12:25 | P.PN ---
Subjective Interval history: This is a pleasant 63 y/o Male admitted with diagnosis of GI bleed, stable seen in his bedroom no further complaint, okay from GI standpoint for discharge. No nausea, vomit or diarrhea. Physical Exam Vital signs: Vital Signs 02/04/18 20:00 02/05/18 00:00 02/05/18 04:00 Temperature 100.5 F H 97.9 F 97.8 F Pulse Rate 91 H 80 72 Respiratory Rate 18 17 17 Blood Pressure 167/74 H 158/89 H 130/89 Pulse Oximetry 100 96 99 02/05/18 08:00 Temperature 98 F Pulse Rate 85 Respiratory Rate 18 Blood Pressure 156/98 H Pulse Oximetry 98 Intake & Output 02/04/18 02/05/18 02/05/18 18:59 06:59 18:59 Intake Total 1000 / 1000 640 / 640 500 / 500 Balance 1000 / 1000 640 / 640 500 / 500 Intake: IV 1000 / 1000 NS Inj 1,000 ML @ 100 mls/hr IV 1000 / 1000 .CONT .Q10H [facility] Rx#:[id number] Oral 640 / 640 Anesthesia Amount 500 / 500 Other: # Voids 4 Date of Last Bowel Movement 02/04/18 # Bowel Movements 1 4 Narrative: GENERAL: Thin, well-developed adult male in no obvious distress. SKIN: Warm and dry. HEAD: Atraumatic. Normocephalic. CARDIOVASCULAR: Regular rate and rhythm. RESPIRATORY: No accessory muscle use. Clear to auscultation. Breath sounds equal bilaterally. GASTROINTESTINAL: Abdomen soft, non-tender, non-distended. Positive bowel sounds. MUSCULOSKELETAL: Extremities without clubbing, cyanosis, or edema. No obvious deformities. NEUROLOGICAL: Awake and alert. No obvious cranial nerve deficits. Motor grossly within normal limits. Normal speech. PSYCHIATRIC: Oriented to self primarily. Calm. Results - Labs CBC & Chem 7: 02/04/18 07:33 02/04/18 07:33 - Procedures EGD. ADVERSE EVENTS: There were no complications. IMPRESSIONS: 1. There was LA Class A esophagitis noted 2. There was mild antral gastropathy noted [T2] 3. Normal duodenal mucosa in the entire duodenum 4. Retroflexed views revealed a hiatal hernia RECOMMENDATIONS: Await biopsy results. Biopsy results will not be ready for 7-10 days. If you don't hear from us in two weeks, call our office for biopsy results. PATIENT CONDITION: stable DISPOSITION: Inpatient REPEAT EXAM: Return as needed for EGD Colonoscopy Cooper Vidal MD eSigned: Cooper Vidal MD 02/05/2018 10:48 AM ADVERSE EVENTS: There were no complications. IMPRESSIONS: 1. Mild diverticulosis was noted in the sigmoid colon 2. Retroflexed views revealed internal hemorrhoids 3. Retroflexed views revealed small internal hemorrhoids 4. Was performed 5. Revealed no abnormalities of the rectum RECOMMENDATIONS: Monitor CBC If anemia persis/ bleeding recurs do PILLCAM RECALL: Return 1 year Colonoscopy Cooper Vidal MD eSigned: Cooper Vidal MD 02/05/2018 10:46 AM Assessment and Plan - Assessment (1) Ileus Code(s): K56.7 - Ileus, unspecified Status: Acute (2) GI bleed Code(s): K92.2 - Gastrointestinal hemorrhage, unspecified Status: Acute (3) Schizophrenia Code(s): F20.9 - Schizophrenia, unspecified Status: Acute - Plan Patient is a 63-year-old -[place] male with a past medical history of hypertension and schizophrenia who was brought to the ER with a complaint of nausea vomiting. Brother also reports that he noticed blood in the patient's stool. Patient is a very poor historian. A/P: 1. Ileus: nausea/vomiting x2 days per family member, CT Abd/Pelvis w/ mild to moderate air distention of the colon, likely hypodynamic ileus, images reviewed. NPO, IVF, antiemetics as needed. Improved. 2. GI Bleed: Hemoccult +, Hgb stable at 14.7, will repeat Hgb/Hct in am, Protonix IV, at this time will go for EGD and Colonoscopy. Hemoglobin stable. not found major pathology on EGD and colonoscopy see report in this same document okay from GI specialist standpoint for discharge and follow in two weeks. 3. Schizophrenia: nonverbal x3 days per Brother;talking now, Psych consult performed and no further evaluation. DVT Prophylaxis: Pharmacologic contraindication in light of GI Bleed Code Status: Full Code. Discussed Condition With: patient and nurse. Discharge Planning: discharge Home now.
[2018-02-05] MEDS: LORazepam 1 MG Tablet PO SCH (12:39)
[2018-02-05] MEDS: Citalopram 20 MG Tablet PO SCH (12:39)
[2018-02-05] MEDS: Bisacodyl 10 MG Supp RECTAL SCH (12:40)
[2018-02-05] MEDS: Senna/Docusate Sodium 8.6/50 MG Tablet PO SCH (12:40)
[2018-02-05] MEDS: Pantoprazole Inj 40 MG Vial IV.PUSH SCH (12:50)
--- NOTE | 2018-02-05 17:20 | P.DS ---
Date of admission: 02/03/18 00:25 Primary care physician: [facility] Attending physician on discharge: Vic Rodríguez Anticipated date of discharge: 02/05/18 Brief History from admission: Is a 63-year-old male with a PMH of HTN and Schizophrenia who was brought to the ER by Brother for evaluation of nausea/vomiting x2 days. Per Brother pt has been nonverbal for approx 3 days. Brother states he noticed blood in patient's stool. Pt will not answer any questions. On arrival, BP 132/94, HR 110, O2 sat 97% on RA, Afebrile. CBC unremarkable, hemoglobin 14.7. INR 1.2. Chemistry essentially unremarkable except for BUN 22, calcium 11.3. Troponin 0 0.04. UA negative for UTI, + hematuria. Urine Drug Screen negative. Alcohol negative. CT Head negative. CXR with no acute findings. CT Abdomen/Pelvis mild to moderate distention in the colon, possibly mild hypodynamic ileus, mild fluid distention of gastric lumen. On exam, Hemoccult +. DS: Diagnosis - Discharge Diagnosis (1) Ileus Status: Acute (2) GI bleed Status: Acute (3) Schizophrenia Status: Acute DS: Medications - Discharge Medications Prescriptions: sennosides-docusate sodium [Senna Plus] 1 tab PO BID #60 tab DS: Summary Hospital Course: This is a pleasant 63 y/o Male admitted with diagnosis of GI bleed, stable seen in his bedroom no further complaint, okay from GI standpoint for discharge. No nausea, vomit or diarrhea. Assessment and Plan - Assessment (1) Ileus Code(s): K56.7 - Ileus, unspecified Status: Acute (2) GI bleed Code(s): K92.2 - Gastrointestinal hemorrhage, unspecified Status: Acute (3) Schizophrenia Code(s): F20.9 - Schizophrenia, unspecified Status: Acute - Plan Patient is a 63-year-old -[place] male with a past medical history of hypertension and schizophrenia who was brought to the ER with a complaint of nausea vomiting. Brother also reports that he noticed blood in the patient's stool. Patient is a very poor historian. A/P: 1. Ileus: nausea/vomiting x2 days per family member, CT Abd/Pelvis w/ mild to moderate air distention of the colon, likely hypodynamic ileus, images reviewed. NPO, IVF, antiemetics as needed. Improved. 2. GI Bleed: Hemoccult +, Hgb stable at 14.7, will repeat Hgb/Hct in am, Protonix IV, at this time will go for EGD and Colonoscopy. Hemoglobin stable. not found major pathology on EGD and colonoscopy see report in this same document okay from GI specialist standpoint for discharge and follow in two weeks. 3. Schizophrenia: nonverbal x3 days per Brother;talking now, Psych consult performed and no further evaluation. DVT Prophylaxis: Pharmacologic contraindication in light of GI Bleed Code Status: Full Code. Discussed Condition With: patient and nurse. Discharge Planning: discharge Home now. - Time Spent with Patient Total time spent providing and/or coordinating discharge services: Less than 30 minutes - Quality: VTE Deep Vein Thrombosis/Pulmonary Embolism Present on Admission: No Exam Vital signs: Vital Signs 02/04/18 20:00 02/05/18 00:00 02/05/18 04:00 Temperature 100.5 F H 97.9 F 97.8 F Pulse Rate 91 H 80 72 Respiratory Rate 18 17 17 Blood Pressure 167/74 H 158/89 H 130/89 Pulse Oximetry 100 96 99 02/05/18 08:00 02/05/18 12:00 Temperature 98 F 98 F Pulse Rate 85 79 Respiratory Rate 18 18 Blood Pressure 156/98 H 179/89 H Pulse Oximetry 98 98 Intake & Output 02/04/18 02/05/18 02/05/18 18:59 06:59 18:59 Intake Total 1000 / 1000 640 / 640 500 / 500 Balance 1000 / 1000 640 / 640 500 / 500 Intake: IV 1000 / 1000 NS Inj 1,000 ML @ 100 mls/hr IV 1000 / 1000 .CONT .Q10H [facility] Rx#:[id number] Oral 640 / 640 Anesthesia Amount 500 / 500 Other: # Voids 4 Date of Last Bowel Movement 02/04/18 02/05/18 # Bowel Movements 1 4 Narrative: GENERAL: Thin, well-developed adult male in no obvious distress. SKIN: Warm and dry. HEAD: Atraumatic. Normocephalic. CARDIOVASCULAR: Regular rate and rhythm. RESPIRATORY: No accessory muscle use. Clear to auscultation. Breath sounds equal bilaterally. GASTROINTESTINAL: Abdomen soft, non-tender, non-distended. Positive bowel sounds. MUSCULOSKELETAL: Extremities without clubbing, cyanosis, or edema. No obvious deformities. NEUROLOGICAL: Awake and alert. No obvious cranial nerve deficits. Motor grossly within normal limits. Normal speech. PSYCHIATRIC: Oriented to self primarily. Calm. Results Procedures completed during hospitalization: EGD. ADVERSE EVENTS: There were no complications. IMPRESSIONS: 1. There was LA Class A esophagitis noted 2. There was mild antral gastropathy noted [T2] 3. Normal duodenal mucosa in the entire duodenum 4. Retroflexed views revealed a hiatal hernia RECOMMENDATIONS: Await biopsy results. Biopsy results will not be ready for 7-10 days. If you don't hear from us in two weeks, call our office for biopsy results. PATIENT CONDITION: stable DISPOSITION: Inpatient REPEAT EXAM: Return as needed for EGD Colonoscopy Cooper Vidal MD eSigned: Cooper Vidal MD 02/05/2018 10:48 AM ADVERSE EVENTS: There were no complications. IMPRESSIONS: 1. Mild diverticulosis was noted in the sigmoid colon 2. Retroflexed views revealed internal hemorrhoids 3. Retroflexed views revealed small internal hemorrhoids 4. Was performed 5. Revealed no abnormalities of the rectum RECOMMENDATIONS: Monitor CBC If anemia persis/ bleeding recurs do PILLCAM RECALL: Return 1 year Colonoscopy Cooper Vidal MD eSigned: Cooper Vidal MD 02/05/2018 10:46 AM Pending studies at discharge: Pending at discharge 02/05/18 Surgical [PTH] Routine - Impressions ITS Impressions Abdomen/Pelvis CT 02/02/18 18:53 CONCLUSION: 1. There is mild to moderate air distention of the colon in a nonobstructive pattern. Findings could represent a mild hypodynamic ileus. 2. Mild fluid distention of the gastric lumen. Nonspecific but can be seen in patients with a reported history of emesis. 3. Otherwise, no acute intraperitoneal or pelvic process to explain current clinical symptoms. Head CT 02/02/18 19:27 CONCLUSION: Negative exam . Chest X-Ray 02/02/18 19:44 CONCLUSION: Hyperinflation with no acute cardiopulmonary process. Discharge Plan - Discharge Disposition Patient Disposition: 01 Discharge Home - Discharge Condition Condition: Stable - Discharge Order Discharge Orders: Discharge Order (Routine); Ordered 02/05/18 Ordered By: Vic Rodríguez Gastroenterology Clear for Discharge (Routine); Ordered 02/05/18 Ordered By: Santo Yu - Discharge Details Anticipated Discharge Date: 02/05/18 Discharge Comment: Follow with PCP in three days - Physicians Team Primary Care Provider: [facility] Attending Provider: Vic Rodríguez Other Providers: Santo Yu MD ; Tu Garcia MD
== END 2018-02-05 18:00 | disposition home or self-care (01) ==
LOC: NEPE 17:08 → NEDA 02-03 00:25 → NEPFCDU 02-03 01:27 → N06 02-03 11:30
PROVIDERS: ADMIT Internal Medicine; ATTEND Internal Medicine
PROC: COLONOS (2018-02-05 10:00)
PROC: PANENDO (2018-02-05 10:00)